=== PATIENT | female | born 1950 | race Caucasian/White ===

== ENCOUNTER → 2023-10-25 07:33 | Outpatient (REF) | payer MEDICARE, OTHER, SELFPAY ==
[2023-10-25 08:53] LABS: % Basophils 0.8 % (0-2); % Eosinophils 2.7 % (0-6); % Immature Granulocytes 0.3 % (0-0.5); % Lymphocytes 15.5 % (20.5-51.1); % Monocytes 10.2 % (1.7-9.3); % Neutrophils 70.5 % (42.2-75.2); Absolute Basophils 0.1 10^3/uL (0-0.2); Absolute Eosinophils 0.2 10^3/uL (0-0.7); Absolute Monocytes 0.6 10^3/uL (0.1-0.6); Absolute Neutrophils 4.4 10^3/uL (1.4-6.5); Hemoglobin 13.9 g/dL (12.0-16.0); Mean Corp Hgb Conc. 34.8 g/dL (33.0-37.0); Mean Corpuscular Hgb 28.7 pg (27.0-31.0); Mean Corpuscular Volume 82.5 fL (81.0-99.0); Mean Platelet Volume 8.5 fL (7.4-10.4); Nucleated Red Blood Cells % 0 %; Platelet Count 301 10^3/uL (130-400); Red Blood Cell Count 4.85 10^6/uL (4.20-5.40); Red Cell Dist. Width 13.4 % (11.5-14.5); White Blood Cell Count 6.3 10^3/uL (4.8-10.8)
[2023-10-25 09:18] LABS: ALT (SGPT) 18 U/L (0-35); AST (SGOT) 22 U/L (14-36); Albumin 3.8 g/dl (3.5-5.0); Alkaline Phosphatase 128 U/L (38-126); Blood Urea Nitrogen 17 mg/dl (7-17); Calcium 8.9 mg/dl (8.4-10.2); Carbon Dioxide 23 mmol/L (22-30); Chloride 96 mmol/L (98-107); Glucose 80 mg/dl (70-99); HDL Cholesterol 64 mg/dl; LDL Cholesterol, Calculated 156 mg/dl; Potassium 4.3 mmol/L (3.5-5.1); Sodium 128 mmol/L (135-145); Total Bilirubin 0.5 mg/dl (0.2-1.3); Total Cholesterol 238 mg/dl (50-199); Total Protein 5.5 g/dl (6.3-8.2); Triglyceride 94 mg/dl (10-149); Very Low Density Lipoprotein 18 mg/dl (0-30); eGFR > 60.00
[2023-10-25 10:37] LABS: Free T4 0.83 ng/dl (0.78-2.19); Vitamin D, 25-OH*** 34.7 ng/mL (30-80)
[2023-10-25 10:50] LABS: TSH 1.54 uIU/ml (0.47-4.68)
[2023-10-26 09:24] LABS: Glycohemoglobin (HgbA1c) 5.2 % (4.0-5.6)
[2023-10-27 01:03] LABS: Lamotrigine (Lamictal) 2.2 ug/mL (3.0-15.0)
[2023-10-28 05:52] LABS: Oxcarbazepine Metabolite 29 ug/mL (3-35)
== END ==
LOC: OLABWPC 07:33
PROVIDERS: ATTENDING PHYSICIAN Registered Nurse
DX: G35 Multiple sclerosis (principal); I73.9 Peripheral vascular disease, unspecified; I10 Essential (primary) hypertension; E78.5 Hyperlipidemia, unspecified; E55.9 Vitamin D deficiency, unspecified; R73.03 Prediabetes
CPT/HCPCS: 36415; 80053; 80061; 80175; 80183; 82306; 83036; 84439; 84443; 85025

== ENCOUNTER → 2024-01-17 13:40 | Outpatient (REF) | payer MEDICARE, OTHER, SELFPAY ==
[2024-01-17 21:56] LABS: Urine Albumin Trace (Neg - Trace); Urine Bilirubin Negative (Negative); Urine Character Very Cloudy (Clear); Urine Color Yellow; Urine Glucose Negative (Negative); Urine Ketone Negative (Negative); Urine Leukocyte 2+ (Negative); Urine Nitrite Negative (Negative); Urine Occult Blood 1+ (Negative); Urine Urobilinogen Negative (Neg - 1+)
[2024-01-17 22:48] LABS: Urine White Cell >100 /HPF (0-5)
[2024-01-17 22:49] LABS: Urine Bacteria Many (Negative)
== END ==
LOC: CLAB 13:40
PROVIDERS: ATTENDING PHYSICIAN Nurse Practitioner Family
DX: N39.0 Urinary tract infection, site not specified (principal)
CPT/HCPCS: 81003; 81015; 87077; 87086

== ENCOUNTER → 2024-03-29 19:00 | Outpatient (REF) | payer MEDICARE, OTHER, SELFPAY ==
[2024-03-30 10:43] LABS: Blood Urea Nitrogen 15 mg/dl (7-17); Calcium 9.4 mg/dl (8.4-10.2); Carbon Dioxide 23 mmol/L (22-30); Chloride 95 mmol/L (98-107); Glucose 97 mg/dl (70-99); Potassium 4.5 mmol/L (3.5-5.1); Sodium 129 mmol/L (135-145); eGFR > 60.00
[2024-03-30 10:54] LABS: Urine Albumin Negative (Neg - Trace); Urine Bilirubin Negative (Negative); Urine Character Clear (Clear); Urine Color Yellow; Urine Glucose Negative (Negative); Urine Ketone Negative (Negative); Urine Leukocyte Negative (Negative); Urine Nitrite Negative (Negative); Urine Occult Blood Negative (Negative); Urine Urobilinogen Negative (Neg - 1+)
== END ==
LOC: OLABWPC 19:00
PROVIDERS: ATTENDING PHYSICIAN Nurse Practitioner Family
DX: R30.0 Dysuria (principal); I10 Essential (primary) hypertension
CPT/HCPCS: 36415; 80048; 81003

== ENCOUNTER → 2024-10-28 21:00 | Outpatient (REF) | payer MEDICARE, OTHER, SELFPAY ==
[2024-10-29 11:26] LABS: Urine Character Slightly Cloudy (Clear)
[2024-10-29 13:14] LABS: Urine Squamous Cell 16-20 /LPF (Few)
[2024-10-29 13:16] LABS: Urine Red Blood Cell 0-2 /HPF (0-2)
== END ==
LOC: OLABWPC 21:00
PROVIDERS: ATTENDING PHYSICIAN Internal Medicine
DX: R30.0 Dysuria (principal)
CPT/HCPCS: 36415; 81003; 81015; 87086

== ENCOUNTER → 2024-10-30 11:14 | Outpatient (REF) | payer MEDICARE, OTHER, SELFPAY ==
[2024-10-30 13:15] LABS: Vitamin D, 25-OH*** 93.0 ng/mL (30-80)
== END ==
LOC: OLABWPC 11:14
PROVIDERS: ATTENDING PHYSICIAN Internal Medicine
DX: L81.4 Other melanin hyperpigmentation (principal); E55.9 Vitamin D deficiency, unspecified
CPT/HCPCS: 36415; 82306

== ENCOUNTER → 2024-12-18 09:55 | Outpatient (REF) | payer MEDICARE, OTHER, SELFPAY ==
[2024-12-18 11:26] LABS: Vitamin D, 25-OH*** 53.6 ng/mL (30-80)
== END ==
LOC: OLABWPC 09:55
PROVIDERS: ATTENDING PHYSICIAN Internal Medicine
DX: E55.9 Vitamin D deficiency, unspecified (principal)
CPT/HCPCS: 36415; 82306

== ENCOUNTER 2025-02-21 16:53 | Emergency (ER) | payer MEDICARE, SELFPAY ==
[2025-02-21 16:57] VITALS: BP 202/98
--- NOTE | 2025-02-21 17:32 | ED.GENMED ---
History of Present Illness
General
Chief Complaint: Fall
Source: patient
Exam Limitations: none
Time Seen by Provider: 02/21/25 17:27
History of Present Illness
History of Present Illness:
See MDM
Past History
Past History
ED Past Medical History: HTN, Hypercholesterolemia, Other (Multiple sclerosis presumed relapsing remitting; cognitive decline, trigeminal neuralgia, optic neuritis bilaterally, gait dysfunction) and Other (temporal lobe edema, cavernous venous
angioma)
ED Past Surgical History: Other (Right occipital Craniectomy June 2013 with resultant small subdural hematomas, cataract extraction, gamma knife procedure times 2, glycerol rhizotomy for trigeminal neuralgia)
Social History
Tobacco: Non-smoker
Alcohol: None
Drug: None
Personal:
Living: alone
Employment: Retired
Family History
Family History: Other (reviewed and noncontributory)
Phy Exam
Physical Exam
Physical Exam:
See MDM
Course
Orders/Labs/Results
Orders:
Orders
02/21/25 17:31
CT Head W/o Iv Contrast Urgent
Comment:
Reason For Exam: fall, R head injury
Acetaminophen [Tylenol] 650 mg PO NOW STA
Vital Signs
Initial and Last Documented VS:
Initial Vital Signs
Temp Pulse Resp BP Pulse Ox
98.5 F 88 16 202/98 98
02/21/25 16:57 02/21/25 16:57 02/21/25 16:57 02/21/25 16:57 02/21/25 16:57
Last Documented Vital Signs
Temp Pulse Resp BP Pulse Ox
98.5 F 88 16 191/80 97
02/21/25 16:57 02/21/25 16:57 02/21/25 16:57 02/21/25 17:42 02/21/25 17:42
MDM/Problems Addressed
Differential Diagnosis Includes:
Note:
CHIEF COMPLAINT(S)
Fall with concern for head injury.
HISTORY OF PRESENT ILLNESS
The patient is a 74-year-old female with a history of multiple sclerosis, presenting after a fall at her new apartment. She states the fall occurred when she went to the bathroom but does not report tripping over anything specific. The patient
denies feeling unsafe in her current environment but expresses frustration about the new living situation. She reports hitting her head during the fall and experiencing associated hip pain. She is concerned about her blood pressure, which she
mentions has been high. Tylenol has been suggested for pain management.
PAST MEDICAL AND SURGICAL HISTORY
Longstanding history of multiple sclerosis for approximately 50 years.
CHRONIC MEDICAL CONDITIONS SIGNIFICANTLY AFFECTING CARE
Chronic conditions affecting care include a history of multiple sclerosis.
PHYSICAL EXAM
General: Alert, no acute distress.
Skin: Warm, dry.
Head: Mild abrasion to right scalp
Neck: Appears supple, trachea midline.
Eyes, Ears, Nose, Mouth, and Throat: Moist mucous membranes
Cardiovascular: No signs of cyanosis
Respiratory: Respirations are non-labored.
Abdomen: Non-distended
Musculoskeletal: No deformities. No hip tenderness
Neurological: No focal neurological deficit observed.
Psychiatric: Cooperative, appropriate mood and affect.
PLAN
Perform a computed tomography (CT) scan to evaluate for potential head injury due to the fall.
DIFFERENTIAL DIAGNOSIS
The Differential Diagnosis includes, in no particular order and is not limited to:
- Traumatic brain injury
- Intracranial hemorrhage
- Hypertension-related complications
- Multiple sclerosis-related complications
- Simple fall due to environmental factors
- Musculoskeletal injury
- Syncope leading to fall
- Orthostatic hypotension leading to fall
- Vestibular dysfunction
SUMMARY OF ENCOUNTER
The patient presented to the emergency department due to a fall with concern for head injury. She has a long history of multiple sclerosis. Given her report of hitting her head during the fall and experiencing hip pain, a CT scan was ordered to rule
out any intracranial injury. Her high blood pressure was mentioned but not viewed as the primary cause of her visit. Tylenol was considered for pain management.
DISPOSITION
Plan for discharge home after completion of evaluation and treatment.
MEDICATION RECONCILIATION
Consideration for Tylenol for pain after her fall.
MEDICAL DECISION MAKING
- Number and Complexity of Problems Addressed: Chronic conditions affecting care include a history of multiple sclerosis.
- Data:
Category 1:
- The decision to order a CT scan to evaluate for potential head injury following the fall.
Category 3:
- Discussion of management reflects consideration of home discharge after evaluation and treatment.
- Risk:
- Consideration of Admission/Observation: Escalation of care including admission/observation was considered given the complexity and risk of the patients presenting complaint, exam findings, and/or their underlying comorbidities. However, ultimately
I feel the patient is safe for outpatient management with close follow-up. Reasoning: Work-up reassuring, does not reveal any acute life/organ threatening processes, patients symptoms well-controlled upon reevaluation, reexamination is reassuring,
vitals are stable, patient agreeable with discharge, reliable for follow-up.
SUMMARY OF ENCOUNTER
The patient, a 74-year-old female with a long history of multiple sclerosis, presented to the emergency department after a fall in her new apartment, during which she hit her head. Although she reported hip pain and was concerned about her high
blood pressure, the primary concern was potential head injury. A CT scan of the head was performed to rule out any intracranial injury, and the results were negative. The patient appeared well and stable, showing no signs of toxicity or further
injury.
DISPOSITION
The patient is being discharged home as she feels comfortable and safe returning there. Transportation has been arranged for her departure from the emergency department.
PLAN
Discharge home with close outpatient follow-up due to her history of multiple sclerosis and recent fall, to monitor for any delayed symptoms.
PATIENT EDUCATION AND COUNSELING
The patient was advised on return precautions, highlighting the importance of seeking immediate care if symptoms such as severe headache, confusion, or dizziness arise. She expressed understanding and agreed with the discharge plan.
MEDICATION RECONCILIATION
Consideration for acetaminophen for pain management following the fall.
MEDICAL DECISION MAKING
- Number and Complexity of Problems Addressed: Chronic conditions affecting care include a history of multiple sclerosis. Differential diagnosis considered traumatic brain injury, intracranial hemorrhage, hypertension-related complications, and
musculoskeletal injury.
- Data:
Category 1: CT of the head was ordered and independently reviewed, showing no evidence of acute injury.
Category 3: The discussion involved planning outpatient management and ensuring safe discharge conditions.
- Risk: Consideration of admission/observation due to the complexity and risk associated with the patients presenting complaint and comorbidities. However, she was deemed safe for outpatient management with reliable follow-up and stable condition
upon reexamination.
DIAGNOSIS
- Fall-related head injury (ICD-10: W19)
- Hypertension (ICD-10: I10)
*Pulse Oximetry
SaO2: 98
Oxygen Mode of Delivery: Room air
Patient hypoxic: no
*Critical Care Note
Total Time (30-74mins, 75-104mins- exclusive of procedures): Not Applicable
ED Attending Note
-
Portions of this chart may have been created with voice recognition software.� Occasional wrong word or��sound alike� substitutions may have occurred due to the inherent limitations of voice recognition software.
Discharge Plan
Departure
Patient Disposition: Home (Routine Discharge)
Date of Disposition: 02/21/25
Time of Disposition: 19:22
Patient with high blood pressure during this ER visit?: Yes
Discharge Problem:
Head injury
Instructions: Head Injury in Adults (DC), BLOOD PRESSURE
Prescriptions:
No Action
lisinopril 10 MG tablet
10 mg PO DAILY
Patient Comments:
02/21/21 Per home care nurse at [place]
Rx Instructions:
HOLD FOR SBP<100
docusate sodium 100 MG capsule
100 mg PO BIDPRN PRN (Reason: No BM > 24 hours) 0RF
donepezil 10 mg Tablet
10 mg PO HS
therapeutic multivitamin Tablet
1 tab PO DAILY
oxcarbazepine 300 mg tablet
450 mg PO BID@0800,1700
oxcarbazepine 300 mg tablet
600 mg PO HS
lamotrigine 25 mg tablet
25 mg PO DAILY
lamotrigine 25 mg tablet
50 mg PO HS
magnesium hydroxide [Milk of Magnesia] 400 mg/5 mL Suspension
30 ml PO DAILYPRN PRN (Reason: NO BM IN 3 DAYS)
benzonatate 100 mg Capsule
100 mg PO Q8HPRN PRN (Reason: COUGH)
fluticasone propionate 50 mcg/actuation [place],Suspension
1 spray INTRANASAL DAILY
loratadine 10 mg Tablet
10 mg PO DAILY
Artificial Tears(pvalch-povid) 0.5-0.6 % Drops
1 drp BOTH EYES QID
acetaminophen 325 MG tablet
650 mg PO Q6HPRN PRN (Reason: mild pain/[place]/temp> 100.F)
amoxicillin-pot clavulanate 875-125 mg tablet
1 tab PO BID Qty: 10 0RF
Referrals:
Drake Ortez MD [Family Provider]
Activity Restrictions/Additional Instructions:
Please return for any worsening symptoms.
You may return at any time if you have further concerns.
Please follow up with your doctor at the first available appointment, preferably this week.
Thank you for choosing [facility].
Interventions
Interventions:
*Risk Screen - Suicide Last Done: 02/21/25 18:00
*General Assessment Last Done: 02/21/25 18:00
*Neglect/Abuse Screening Last Done: 02/21/25 18:00
*ED- Fall Risk Assessment Last Done: 02/21/25 18:00
ED-Musculoskeletal Assessment Last Done: 02/21/25 18:00
ED- Neurological Assessment Last Done: 02/21/25 18:00
ED-Skin Assessment Last Done: 02/21/25 18:00
Discharge Date and Time
Print Language: BENGALI
[2025-02-21 17:42] VITALS: BP 191/80
[2025-02-21] MEDS: TYLENOL 650 MG PO (19:30)
[2025-02-21 21:10] VITALS: BP 173/100
== END 2025-02-21 22:45 | disposition home or self-care (01) ==
LOC: EMR 16:53
PROVIDERS: EMERGENCY PHYSICIAN Student in an Organized Health Care Education/Training Program; FAMILY PHYSICIAN Internal Medicine
DX: S09.90XA Unspecified injury of head, initial encounter (principal); I10 Essential (primary) hypertension; G35.D Multiple sclerosis, unspecified; E78.00 Pure hypercholesterolemia, unspecified; R41.9 Unspecified symptoms and signs involving cognitive functions and awareness; G50.0 Trigeminal neuralgia; W01.10XA Fall on same level from slipping, tripping and stumbling with subsequent striking against unspecified object, initial encounter; Y92.031 Bathroom in apartment as the place of occurrence of the external cause
CPT/HCPCS: 99284; 70450

== ENCOUNTER 2025-04-05 08:24 | Inpatient (IN) | payer MEDICARE, SELFPAY ==
[2025-04-02 17:00] VITALS: BP 175/105
[2025-04-02 17:01] VITALS: BP 166/105
[2025-04-02 17:02] VITALS: BP 175/105; BMI 23.2
--- NOTE | 2025-04-02 17:08 | ED.GENMED ---
History of Present Illness
<Mis Arenas RECORD MAKER - Last Filed: 04/03/25 22:57>
General
Chief Complaint: Weakness
Source: patient and [facility] records
Exam Limitations: altered mental status
Time Seen by Provider: 04/02/25 17:03
Nursing documentation reviewed up to this point in time: agreed with
History of Present Illness
History of Present Illness:
74 yo female with a history of memory loss, dementia, MS, HLD, HTN on top of this recent lethargy and generalized weakness which is reportedly not at her baseline. According to staff from her place of residence, she typically can stand and transfer
herself, but is currently unable to do so. She was noted to be febrile with an oral temperature of 101.2. The patient is unable to recall her name, date of , and does not know what year it is. She denies chest pain, difficulty breathing, or
dysuria. She denies abdominal pain. States 'I don't want to be here.' States she's 'at [place].'
Past History
<Mis Arenas, RECORD MAKER - Last Filed: 04/03/25 22:57>
Past History
ED Past Medical History: HTN, Hypercholesterolemia, Other (Multiple sclerosis presumed relapsing remitting; cognitive decline, trigeminal neuralgia, optic neuritis bilaterally, gait dysfunction) and Other (temporal lobe edema, cavernous venous
angioma)
ED Past Surgical History: Other (Right ooccipital Craniectomy June 2013 with resultant small subdural hematomas, cataract extraction, gamma knife procedure times 2, glycerol rhizotomy for trigeminal neuralgia)
Social History
Tobacco: Non-smoker
Alcohol: None
Drug: None
Personal:
Living: pen[facility]iary
Employment: Retired
Family History
Family History: Other (reviewed and noncontributory)
Review of Systems
<Mis Arenas, RECORD MAKER - Last Filed: 04/03/25 22:57>
Review of Systems
Allergies reviewed?: Yes
All Other Systems: ROS reviewed and negative except as documented in HPI and ROS
Constitutional: Reports fever
Phy Exam
<Mis Arenas, RECORD MAKER - Last Filed: 04/03/25 22:57>
Physical Exam
Physical Exam:
GENERAL: No acute distress. A&Ox3.
CONSTITUTIONAL: Afebrile.
EYES: clear, conjunctivae normal
ENMT: moist mucus membranes, Pharynx nl
RESPIRATORY: Regular respirations, nonlabored, lungs clear.
CARDIOVASCULAR: Regular rate and rhythm, no murmurs, no rubs. Pedal pulses 2/4. Brisk capillary refill all toes.
GI: Soft, nontender, normal BS
MUSCULOSKELETAL: Moves with ease. Well perfused. R lower leg and foot +1-2 swollen compared to left. Moves ankle well.
SKIN: Warm, dry, pink
PSYCH: Depressed mood and affect. Well kept.
NEUROLOGIC: Lethargic, easily arouses. Not oriented. No focal neurological deficits
Sepsis
<Mis Arenas, RECORD MAKER - Last Filed: 04/03/25 22:57>
Sepsis Screening
Sepsis Assessment: Sepsis Ruled Out
Sepsis Screen
Sepsis Screen: Sepsis Ruled Out
Date: 04/03/25
Time: 22:57
<Lilia Albarado, RECORD MAKER - Last Filed: 04/04/25 16:47>
Sepsis Screen
Sepsis Screen: Sepsis Ruled Out
Date: 04/04/25
Time: 16:47
Course
<Mis Arenas, RECORD MAKER - Last Filed: 04/03/25 22:57>
Orders/Labs/Results
Orders:
Orders
04/02/25 17:11
0.9% Sodium Chloride 1000 ml [Nss] 2,000 ml IV NOW STA
04/02/25 17:13
Straight cath- Treatment ONCE
CR Chest Portable - 1 View Urgent
Comment:
Reason For Exam: tachycardia, change in MS, fever
Reason Study Needs to be Portable: Patient Unstable
04/02/25 17:55
Basic Metabolic Panel Urgent
Complete Blood Count/With Diff Urgent
Blood Culture Q30M
PAULA Source: Blood/Venous
Specimen Description:
04/02/25 18:20
Lactic Acid Q4H
Comment: CANCEL 2nd LACTIC ACID IF 1st LACTIC ACID IS LESS THAN 2
Blood Culture Q30M
PAULA Source: Blood/Venous
Specimen Description:
04/02/25 18:24
CMP [Comprehensive Metabolic Panel] Urgent
COVID-19 Antigen Urgent
Source: Nasal Swab
Urinalysis Reflex To Culture Urgent
Date Specimen was Collected: 04/02/25
Time Specimen was Collected: 18:22
Urine Microscopic Reflex Cult Urgent
Influenza A+B Rapid Molecular Urgent
PAULA Source: Nasal Swab
Specimen Description:
Urine Culture Urgent
PAULA Source: U
Specimen Description:
Date Specimen was Collected: 04/02/25
Time Specimen was Collected: 18:22
04/02/25 19:53
Electrocardiogram (*1) Urgent
Reason for Study: Tachycardia
EKG- Treatment ONCE
04/02/25 20:22
D-Dimer Urgent
04/02/25 21:23
CT Chest PE Study Urgent
Comment:
Reason For Exam: SOB, elevated DDimer
04/03/25 00:18
Admit/Transfer Patient As Directed
Co-Sign Provider:
Level of Care: Observation services
Assign to:: Telemetry
Physician / Group: Enrique
Diagnosis: Fever
Reason for Telemetry: Arrhythmia
Date to Stop Telemetry: 04/06/25
Time to Stop Telemetry: 11:00
PRN Pain Medication Management As Directed
May give lesser potent ordered pain med per pt: Yes
preference::
Protocol:: Medication orders for pain may be administered in a
manner that supports deferring to patient preference
when the pt is:
- Requesting an ordered lesser potent pain medication.
Least to most potent pain medications are defined
as: acetaminophen < NSAID < tramadol < opioids
(morphine, oxycodone, hydromorphone).
- Requesting a lesser dose of the same medication IF
ORDERED.
- Requesting a less intrusive route of administration
if both routes are prescribed by the provider (PO <
IV).
04/03/25 00:20
Code Status As Directed
Resuscitation Status: Do not resuscitate
Based on pt advanced directive or healthcare POA form: Yes
DNR Bracelet Application ONCE
04/03/25 00:23
Enoxaparin Sodium [Lovenox] 70 mg SC NOW STA
Lamotrigine [Lamictal] 50 mg PO NOW STA
Oxcarbazepine [Trileptal] 600 mg PO NOW STA
04/03/25 01:00
Flush (0.9% Sodium Chloride) [Flush (Nss)] See Dose Instructions IV PER PROTOCOL
04/03/25 03:45
Acetaminophen [Tylenol] 650 mg PO Q4HPRN PRN
HydrALAZINE [Apresoline] 5 mg IV Q6HPRN PRN
04/03/25 03:45
Echo 2D MMode Doppler [Echo 2D MMode Color/Doppler] Routine
Reason for Study: Weakness, ? PE
Case Management Consult ONCE
Case Management Consult: Discharge Planning
Activity As Directed
Activity Level: Ambulate
With Assistance
Bladder Scan As Directed
Follow Bladder Retention/Intermittent Cath Algorithm?: Yes
PRN if no void in __ hours: 6
Frequency: Per Retention Algorithm
If Bladder Scan Result >: 400
then:: Straight cath
EKG with chest pain [ECG as needed] As Directed
ECG as needed for:: Chest Pain
I/O [Intake/ Output] As Directed
Frequency: Per unit guidelines
Neurological Checks As Directed
Frequency: q4h
Orthostatic Vital Signs As Directed
Orthostatic VS Frequency: BID
Straight Cath As Directed
Frequency: Per Retention Algorithm
Additional Instructions: straight cath as needed per acute urinary retention algorithm for 24 hrs
Additional Instructions: for bladder scan greater than 400 mL
Vital Signs As Directed
Frequency: Per unit guidelines
Weight As Directed
Frequency: Daily
Oxygen Therapy [O2 Therapy] [RESP] Routine
Titrate/Wean O2 to maintain O2 sat greater than (%): 94
Ot Eval And Treat Routine
PT Consult [Pt Eval And Treat] Routine
Activity Level: Ambulate
With Assistance
04/03/25 04:00
0.9% Sodium Chloride 1000 ml [Nss] 1,000 ml IV 80 mls/hr
04/03/25 Breakfast
Regular
At Your Request: Non-Participating
Does patient need a safe tray?: No
04/03/25 06:56
Complete Blood Count/No Diff IN AM
TSH Reflex To Free T4 Routine
04/03/25 08:00
Cetirizine HCl [Zyrtec] 10 mg PO DAILY
Lamotrigine [Lamictal] 25 mg PO DAILY
Lisinopril [Zestril] 10 mg PO DAILY
Memantine HCl [Namenda] 10 mg PO BID
Oxcarbazepine [Trileptal] 150 mg PO BID@0800,1700
04/03/25 13:00
Enoxaparin Sodium [Lovenox] 70 mg SC Q12H
04/03/25 22:00
Atorvastatin [Lipitor] 20 mg PO HS
Donepezil HCl [Aricept] 10 mg PO HS
Lamotrigine [Lamictal] 50 mg PO HS
Melatonin 3 mg PO HS
Oxcarbazepine [Trileptal] 600 mg PO HS
04/06/25 11:00
DC Protocol for Telemetry ONCE
Abnormal Lab Results
04/02/25 04/02/25 04/02/25
17:55 18:24 20:22
Absolute Lymphs (auto) 0.4 L 10^3/uL
(1.2-3.4)
Absolute Monos (auto) 0.9 H 10^3/uL
(0.1-0.6)
Neutrophils % 81.4 H %
(42.2-75.2)
Lymphocytes % 5.8 L %
(20.5-51.1)
Monocytes % 11.7 H %
(1.7-9.3)
D-Dimer 0.91 H ug/mlFEU
(0.00-0.50)
Sodium 133 L mmol/L 134 L mmol/L
(135-145) (135-145)
BUN 18 H mg/dl
(7-17)
Creatinine 0.5 L mg/dL 0.5 L mg/dL
(0.6-1.0) (0.6-1.0)
Alkaline Phosphatase 134 H U/L
(38-126)
Urine Ketones 2+ A
(Negative)
Urine Bacteria (Reflex) Moderate A
(Negative)
Urine Albumin (Reflex) 1+ A
(Neg - Trace)
04/02/25 17:55
04/02/25 18:24
Vital Signs
Initial and Last Documented VS:
Initial Vital Signs
Pulse Resp Pulse Ox
119 23 95
04/02/25 16:59 04/02/25 16:59 04/02/25 16:59
Last Documented Vital Signs
Temp Pulse Resp BP Pulse Ox
98.1 F 99 16 163/89 94
04/04/25 15:30 04/04/25 15:30 04/04/25 15:30 04/04/25 15:30 04/04/25 15:30
<Lilia Albarado, RECORD MAKER - Last Filed: 04/04/25 16:47>
Orders/Labs/Results
Orders:
Orders
04/02/25 17:11
0.9% Sodium Chloride 1000 ml [Nss] 2,000 ml IV NOW STA
04/02/25 17:13
Straight cath- Treatment ONCE
CR Chest Portable - 1 View Urgent
Comment:
Reason For Exam: tachycardia, change in MS, fever
Reason Study Needs to be Portable: Patient Unstable
04/02/25 17:55
Basic Metabolic Panel Urgent
Complete Blood Count/With Diff Urgent
Blood Culture Q30M
PAULA Source: Blood/Venous
Specimen Description:
04/02/25 18:20
Lactic Acid Q4H
Comment: CANCEL 2nd LACTIC ACID IF 1st LACTIC ACID IS LESS THAN 2
Blood Culture Q30M
PAULA Source: Blood/Venous
Specimen Description:
04/02/25 18:24
CMP [Comprehensive Metabolic Panel] Urgent
COVID-19 Antigen Urgent
Source: Nasal Swab
Urinalysis Reflex To Culture Urgent
Date Specimen was Collected: 04/02/25
Time Specimen was Collected: 18:22
Urine Microscopic Reflex Cult Urgent
Influenza A+B Rapid Molecular Urgent
PAULA Source: Nasal Swab
Specimen Description:
Urine Culture Urgent
PAULA Source: U
Specimen Description:
Date Specimen was Collected: 04/02/25
Time Specimen was Collected: 18:22
04/02/25 19:53
Electrocardiogram (*1) Urgent
Reason for Study: Tachycardia
EKG- Treatment ONCE
04/02/25 20:22
D-Dimer Urgent
04/02/25 21:23
CT Chest PE Study Urgent
Comment:
Reason For Exam: SOB, elevated DDimer
04/03/25 00:18
Admit/Transfer Patient As Directed
Co-Sign Provider:
Level of Care: Observation services
Assign to:: Telemetry
Physician / Group: Enrique
Diagnosis: Fever
Reason for Telemetry: Arrhythmia
Date to Stop Telemetry: 04/06/25
Time to Stop Telemetry: 11:00
PRN Pain Medication Management As Directed
May give lesser potent ordered pain med per pt: Yes
preference::
Protocol:: Medication orders for pain may be administered in a
manner that supports deferring to patient preference
when the pt is:
- Requesting an ordered lesser potent pain medication.
Least to most potent pain medications are defined
as: acetaminophen < NSAID < tramadol < opioids
(morphine, oxycodone, hydromorphone).
- Requesting a lesser dose of the same medication IF
ORDERED.
- Requesting a less intrusive route of administration
if both routes are prescribed by the provider (PO <
IV).
04/03/25 00:20
Code Status As Directed
Resuscitation Status: Do not resuscitate
Based on pt advanced directive or healthcare POA form: Yes
DNR Bracelet Application ONCE
04/03/25 00:23
Enoxaparin Sodium [Lovenox] 70 mg SC NOW STA
Lamotrigine [Lamictal] 50 mg PO NOW STA
Oxcarbazepine [Trileptal] 600 mg PO NOW STA
04/03/25 01:00
Flush (0.9% Sodium Chloride) [Flush (Nss)] See Dose Instructions IV PER PROTOCOL
04/03/25 03:45
Acetaminophen [Tylenol] 650 mg PO Q4HPRN PRN
HydrALAZINE [Apresoline] 5 mg IV Q6HPRN PRN
04/03/25 03:45
Echo 2D MMode Doppler [Echo 2D MMode Color/Doppler] Routine
Reason for Study: Weakness, ? PE
Case Management Consult ONCE
Case Management Consult: Discharge Planning
Activity As Directed
Activity Level: Ambulate
With Assistance
Bladder Scan As Directed
Follow Bladder Retention/Intermittent Cath Algorithm?: Yes
PRN if no void in __ hours: 6
Frequency: Per Retention Algorithm
If Bladder Scan Result >: 400
then:: Straight cath
EKG with chest pain [ECG as needed] As Directed
ECG as needed for:: Chest Pain
I/O [Intake/ Output] As Directed
Frequency: Per unit guidelines
Neurological Checks As Directed
Frequency: q4h
Orthostatic Vital Signs As Directed
Orthostatic VS Frequency: BID
Straight Cath As Directed
Frequency: Per Retention Algorithm
Additional Instructions: straight cath as needed per acute urinary retention algorithm for 24 hrs
Additional Instructions: for bladder scan greater than 400 mL
Vital Signs As Directed
Frequency: Per unit guidelines
Weight As Directed
Frequency: Daily
Oxygen Therapy [O2 Therapy] [RESP] Routine
Titrate/Wean O2 to maintain O2 sat greater than (%): 94
Ot Eval And Treat Routine
PT Consult [Pt Eval And Treat] Routine
Activity Level: Ambulate
With Assistance
04/03/25 04:00
0.9% Sodium Chloride 1000 ml [Nss] 1,000 ml IV 80 mls/hr
04/03/25 Breakfast
Regular
At Your Request: Non-Participating
Does patient need a safe tray?: No
04/03/25 06:56
Complete Blood Count/No Diff IN AM
TSH Reflex To Free T4 Routine
04/03/25 08:00
Cetirizine HCl [Zyrtec] 10 mg PO DAILY
Lamotrigine [Lamictal] 25 mg PO DAILY
Lisinopril [Zestril] 10 mg PO DAILY
Memantine HCl [Namenda] 10 mg PO BID
Oxcarbazepine [Trileptal] 150 mg PO BID@0800,1700
04/03/25 13:00
Enoxaparin Sodium [Lovenox] 70 mg SC Q12H
04/03/25 22:00
Atorvastatin [Lipitor] 20 mg PO HS
Donepezil HCl [Aricept] 10 mg PO HS
Lamotrigine [Lamictal] 50 mg PO HS
Melatonin 3 mg PO HS
Oxcarbazepine [Trileptal] 600 mg PO HS
04/06/25 11:00
DC Protocol for Telemetry ONCE
Abnormal Lab Results
04/02/25 04/02/25 04/02/25
17:55 18:24 20:22
Absolute Lymphs (auto) 0.4 L 10^3/uL
(1.2-3.4)
Absolute Monos (auto) 0.9 H 10^3/uL
(0.1-0.6)
Neutrophils % 81.4 H %
(42.2-75.2)
Lymphocytes % 5.8 L %
(20.5-51.1)
Monocytes % 11.7 H %
(1.7-9.3)
D-Dimer 0.91 H ug/mlFEU
(0.00-0.50)
Sodium 133 L mmol/L 134 L mmol/L
(135-145) (135-145)
BUN 18 H mg/dl
(7-17)
Creatinine 0.5 L mg/dL 0.5 L mg/dL
(0.6-1.0) (0.6-1.0)
Alkaline Phosphatase 134 H U/L
(38-126)
Urine Ketones 2+ A
(Negative)
Urine Bacteria (Reflex) Moderate A
(Negative)
Urine Albumin (Reflex) 1+ A
(Neg - Trace)
04/02/25 17:55
04/02/25 18:24
Vital Signs
Initial and Last Documented VS:
Initial Vital Signs
Pulse Resp Pulse Ox
119 23 95
04/02/25 16:59 04/02/25 16:59 04/02/25 16:59
Last Documented Vital Signs
Temp Pulse Resp BP Pulse Ox
98.1 F 99 16 163/89 94
04/04/25 15:30 04/04/25 15:30 04/04/25 15:30 04/04/25 15:30 04/04/25 15:30
<Mis Arenas RECORD MAKER - Last Filed: 04/03/25 22:57>
MDM/Problems Addressed
Differential Diagnosis Includes:
UTI, dehydration
MDM/Problems Addressed:
74 yo female with a history of memory loss, cognitive decline, dementia, MS, HLD, HTN on top of this recent lethargy and generalized weakness which is reportedly not at her baseline. According to staff from her place of residence, she typically can
stand and transfer herself, but is currently unable to do so. She was noted to be febrile with an oral temperature of 101.2. The patient is unable to recall her name, date of , and does not know what year it is. She denies chest pain,
difficulty breathing, or dysuria. She denies abdominal pain. States 'I don't want to be here.' States she's 'at [place].'
Temp 99.8, NAD
6:20 p.m.
Pt more alert, knows she's ad [facility], states year is 2014. continues to deny pain, thinks she's here for 'my blood pressure.' follows commands, strength 5/5 all extremities.
CBC normal
CMP with no clinically significant abnormality.
U/A pending
Covid neg
Flu neg
Lactic acid WNL
7:30 PM:
Patient is refusing ultrasound of right lower extremity, stating that area is 'always swollen.' She states she just wants to go back to [place]
She continues to be more alert, knows she's in [facility] but stating '2014' and '' for president.
Could not reach any medical personnel at [facility]. Spoke with the security operations manager who states pt is in personal care and has aides there 12/11. He gave me the number to the nursing supervisor special services, left message for her to call me back so I could get idea of
pt baseline.
U/A neg
After 1 L NSS IV, HR 108, due to persistent tachycardia, discussed case with Dr. Rebollar. Will check d dimer and if neg, OK to send back to [place]
EKG: NSR
8:15 p.m.
BP 182/92 HR 103 Pulse ox 93% RA
Case discussed with Lilia Albarado who will assume care from this point.
If d dimer is normal, pt OK for DC back to [place], never received a call back for [facility] staff.
<Msi Arenas, RECORD MAKER - Last Filed: 04/03/25 22:57>
*Pulse Oximetry
SaO2: 94
Oxygen Mode of Delivery: Room air
Patient hypoxic: no
*EKG
Interpreted by ED Provider?: Yes
EKG Intrepretation Date: 04/02/25
Interpretation: abnormal
Heart Rate: 110
Rate: tachycardiac
Rhythm: sinus
[place]: normal axis
Interval: normal interval
QRS Pattern: normal QRS
Ischemia: no ischemia
*Critical Care Note
Total Time (30-74mins, 75-104mins- exclusive of procedures): Not Applicable
<Lilia Albarado, RECORD MAKER - Last Filed: 04/04/25 16:47>
Update Note
Update Note:
Patient signed out to me pending D-dimer results. D-dimer elevated at 0.91. Discussed finding with patient and daughter. Patient sent for CT of chest to rule out pulmonary embolism. CT results neg for PE. Mild emphysema, 2mm RUL nodule noted.
Vital signs are unchanged, heart rate maintaining at 110. She remains afebrile. Pulse ox is 94% on room air. No evidence of tachypnea . daughter states that patient appears much weaker than normal and does not feel that she can return back to
her apartment safely. She notes that patient has had diarrhea 2 days ago, leading up to increased weakness. Patient is currently unable to transfer or ambulate without maximum assistance. Will plan on admission to hospitalist for increased
weakness.
ED Attending Note
<Mis Arenas RECORD MAKER - Last Filed: 04/03/25 22:57>
-
Portions of this chart may have been created with voice recognition software.� Occasional wrong word or��sound alike� substitutions may have occurred due to the inherent limitations of voice recognition software.
Discharge Plan
Departure
Patient Disposition: Admit
Date of Disposition: 04/02/25
Time of Disposition: 23:49
Presentation/result/management discussed w/ accepting MD/DO: Hospitalist
Patient with high blood pressure during this ER visit?: No
Condition: Fair
Covid-19: Not Applicable
Discharge Problem:
Weakness
Interventions
Interventions:
*Risk Screen - Suicide Last Done: 04/02/25 18:31
*General Assessment Last Done: 04/02/25 18:31
*Neglect/Abuse Screening Last Done: 04/02/25 18:31
*ED COVID-19 Vaccine History Last Done: 04/02/25 18:31
*ED Influenza Vaccine History Last Done: 04/02/25 18:31
[facility] Risk Assessment Tool Last Done: 04/02/25 18:29
*Nursing Disposition Last Done: 04/03/25 03:05
ED- Cardiac Assessment Last Done: 04/02/25 18:31
ED- Neurological Assessment Last Done: 04/02/25 18:31
ED- Pulmonary Assessment Last Done: 04/02/25 18:31
Discharge Date and Time
Discharge Date/Time: 04/03/25 03:05
[2025-04-02 18:00] VITALS: BP 173/97
[2025-04-02 18:04] LABS: Hematocrit 44.5 % (37.0-47.0); Hemoglobin 15.0 g/dL (12.0-16.0); Mean Corp Hgb Conc. 33.7 g/dL (33.0-37.0); Mean Corpuscular Volume 87.6 fL (81.0-99.0); Nucleated Red Blood Cells % 0 %; Platelet Count 216 10^3/uL (130-400); Red Cell Dist. Width 13.9 % (11.5-14.5)
[2025-04-02 18:18] LABS: Blood Urea Nitrogen 18 mg/dl (7-17); Calcium 9.4 mg/dl (8.4-10.2); Carbon Dioxide 28 mmol/L (22-30); Chloride 98 mmol/L (98-107); Estimated Creatinine Clearance 79 ml/min; Glucose 93 mg/dl (70-99); Sodium 133 mmol/L (135-145); eGFR > 60.00
[2025-04-02] MEDS: NSS 2000 ML IV (18:19)
[2025-04-02 18:46] LABS: ALT (SGPT) 35 U/L (0-35); AST (SGOT) 29 U/L (14-36); Albumin 4.9 g/dl (3.5-5.0); Alkaline Phosphatase 134 U/L (38-126); Blood Urea Nitrogen 16 mg/dl (7-17); Calcium 9.6 mg/dl (8.4-10.2); Carbon Dioxide 27 mmol/L (22-30); Chloride 98 mmol/L (98-107); Estimated Creatinine Clearance 79 ml/min; Glucose 96 mg/dl (70-99); Potassium 4.1 mmol/L (3.5-5.1); Sodium 134 mmol/L (135-145); Total Protein 7.1 g/dl (6.3-8.2); eGFR > 60.00
[2025-04-02 18:51] LABS: COVID-19 Antigen Negative (Negative)
[2025-04-02 19:07] LABS: Urine Character Clear (Clear)
[2025-04-02 19:37] LABS: Urine Squamous Cell None seen /LPF (Few); Urine White Cell 0-2 /HPF (0-5)
[2025-04-02 19:38] LABS: Urine Red Blood Cell None Seen /HPF (0-2)
[2025-04-02 20:43] LABS: D-Dimer 0.91 ug/mlFEU (0.00-0.50)
[2025-04-03] VITALS (7 sets, daily range): BP systolic 149–185; BP diastolic 76–105; PULSE 96–111; BMI 21.9
--- NOTE | 2025-04-03 00:25 | HPS.HSE ---
Family Physician
-
Family Physician: INTERVIEWE UNKNOWN - PT NOT
Chief Complaint
-
Fever, Weakness
History of Present Illness
Patient is a 74y F with PMH significant for multiple sclerosis, dementia, hypertension and trigeminal neuralgia who presents to ED from local [place] for evaluation of fever and weakness. Patient was sent from [facility] after they noted
fever to 101 and patient was having difficulty with standing / transfers - which is not consistent with her baseline. In the ED, patient is intermittently confused. She states that she is here for evaluation of high blood pressure. She denies any
current complaints at all. She is noted to be tachycardic and hypertensive. Evaluation in the ED has otherwise been largely unremarkable.
Tmax here = 99.8. Labs are unremarkable with exception of elevated D-Dimer (0.91). CXR is unremarkable. CTA Chest with no evidence of PE - but notably limited in visualization of bilateral lower lobes due to motion.
Patient states that she did have a recent GI illness / diarrhea. She notes that she has had no diarrhea for the past 3 days however.
No other specific / focal complaints.
Medical History
Past Medical History
Past Medical History: Reports Other
Additional Past Medical History:
Multiple Sclerosis
Dementia
Trigeminal Neuralgia
Hypertension
Cwxxs-Xoszcaljj-Khxra
Chronic Tachycardia
COPD
Chronic Hyponatremia
Cerebral Cavernoma s/p Resection
Past Surgical History: Reports Other
Additional Past Surgical History:
Cerebral Cavernoma Resection
Social History
Tobacco: Former Smoker (Quit smoking age 34.)
Alcohol: None
Drug: None
Living: Correction
Family History
Family History: Not pertinent
Allergies / Home Medications
Allergies reflects when Allergies were last updated in [employer].
Home Medications with original date entered in [employer]
Allergy/Medication List:
Allergies
Allergy/AdvReac Type Severity Reaction Status Date / Time
No Known Allergies Allergy Verified 02/21/25 17:05
Home Medications
lisinopril 10 mg tablet 10 mg PO DAILY Blood pressure 02/21/21
acetaminophen 325 mg tablet 650 mg PO Q6HPRN PRN mild pain/[place]/temp> 100.F 07/10/22
benzonatate 100 mg capsule 100 mg PO Q8HPRN PRN COUGH 07/10/22
donepezil 10 mg tablet 10 mg PO HS DEMENTIA 07/10/22
lamotrigine 25 mg tablet 25 mg PO DAILY Neurological Condition 07/10/22
lamotrigine 25 mg tablet 50 mg PO HS Neurological Condition 07/10/22
magnesium hydroxide 400 mg/5 mL oral suspension (Milk of Magnesia) 30 ml PO DAILYPRN PRN NO BM IN 2 DAYS 07/10/22
oxcarbazepine 300 mg tablet 450 mg PO BID@0800,1700 Neurological Condition 07/10/22
oxcarbazepine 300 mg tablet 600 mg PO HS Neurological Condition 07/10/22
polyvinyl alcohol-povidone 0.5 %-0.6 % eye drops (Artificial Tears (polyvinyl alcohol/povidone)) 1 drp BOTH EYES QID DRY EYE 07/10/22
therapeutic multivitamin 1 tab PO DAILY Supplement 07/10/22
atorvastatin 20 mg tablet (Lipitor) 20 mg PO HS 04/02/25
cetirizine 10 mg tablet (Zyrtec) 10 mg PO DAILY 04/02/25
docusate sodium 100 mg capsule 100 mg PO BIDPRN PRN constipation 04/02/25
guaifenesin 600 mg tablet, extended release 12 hr (Mucinex) 600 mg PO BIDPRN PRN congestion 04/02/25
loperamide 2 mg tablet 2 mg PO [id number] PRN diarrhea 04/02/25
melatonin 3 mg tablet 3 mg PO HS 04/02/25
memantine 10 mg tablet 10 mg PO BID 04/02/25
miconazole nitrate 2 % topical spray powder (Lotrimin AF Powder) 1 spray topical MEADE@2000 toe nails 04/02/25
oxybutynin chloride 5 mg tablet 5 mg PO HS 04/02/25
pseudoephedrine-ibuprofen 30 mg-200 mg capsule (Advil Cold and Sinus) 1 cap PO TIDPRN PRN congestion 04/02/25
Review of Systems
-
History Source: Patient
A 12 point ROS was completed and negative except as noted: Yes
Constitutional: Reports Fever and Fatigue; Denies Chills
EENT: Denies Sore Throat
Respiratory: Denies Cough or Trouble Breathing
Cardiac: Denies Chest Pain or Palpitations
Abdomen/GI: Reports Diarrhea (now resolved x 3 days); Denies Abdominal Pain, Nausea or Vomiting
: Denies Dysuria, Frequency or Flank Pain
Musculoskeletal: Reports Edema (chronic RLE swelling - unchanged.); Denies Joint Pain
Neurological: Reports Weakness; Denies Dizzy or Headache
Physical Exam
Vital Signs
Vital Signs
Temp Pulse Resp BP Pulse Ox
99.8 F 119 23 173/97 94
04/02/25 18:29 04/02/25 18:30 04/02/25 18:30 04/02/25 18:00 04/02/25 18:31
Physical Exam
General: Other (74y F in no acute distress.)
HEENT: Moist mucous membranes and PERRLA
Respiratory: Clear; No Wheezes, Rales or Rhonchi
Cardiac: S1/S2 and Tachycardia; No Murmur
GI: Soft, Non Tender, Non Distended and Normal Bowel Sounds
Musculoskeletal: No Clubbing, No Cyanosis and Other (Trace - 1+ RLE edema. )
Neuro: Awake, Alert and Other (Bilateral LE weakness.)
Laboratory Results
-
04/02/25 17:55
04/02/25 18:24
Laboratory Results
Lactic Acid Cancelled 04/02/25 21:15
Total Bilirubin 0.3 mg/dl (0.2-1.3) 04/02/25 18:24
AST 29 U/L (14-36) 04/02/25 18:24
ALT 35 U/L (0-35) 04/02/25 18:24
Alkaline Phosphatase 134 U/L (38-126) H 04/02/25 18:24
Impression/Plan
-
A/P: Patient is a 74y F with PMH significant for MS, HTN and dementia who presents to ED for evaluation for fever and increased weakness.
Fever
Acute on Chronic Weakness
- Observe overnight for further evaluation.
- Evaluation thus far largely unremarkable (see below).
- COVID / Flu negative. Follow-up culture data.
- Follow temp curve and monitor for any new / focal symptoms.
- Observe off of abx for now.
- PT / OT evaluations.
- Note that baseline is reportedly paraplegic / confined to motorized chair. Able to stand / transfer which she was not able to do today.
Equivocal CTA
- Patient with tachycardia (which is chronic / intermittent) and elevated D-Dimer (even once age-adjusted).
- CTA unable to exclude PE in subsegmental branches of bilateral lower lobes due to motion.
- Weight-based Lovenox for now as PE cannot be definitively ruled-out with this information.
- Echo in AM for further evaluation.
- Follow vitals, SpO2, etc.
Multiple Sclerosis
- Functional paraplegia per prior notes here (2022) and NH report.
- Able to stand / transfer as noted above at baseline.
- PT / OT as noted.
Trigeminal Neuralgia
- No pain at present. s/p prior CyberKnife surgeries x 2.
- Continue current med regimen without changes.
WPW / Chronic Tachycardia
- Monitor on telemetry overnight.
- Follow for any new symptoms, chest pain, etc.
- Echo as noted above.
Senile Dementia
- Variable mental status in the ED - at times [id number].
- During my exam patient seemed able to provide meaningful recent history, answer questions appropriately, etc.
- Continue Aricept / Namenda.
DVT Prophylaxis: Lovenox
Code Status: DNR per Advanced Directive
[2025-04-03] MEDS: LAMICTAL 50 MG PO ×2 (00:51→21:10)
[2025-04-03] MEDS: TRILEPTAL 600 MG PO ×2 (00:51→21:11)
[2025-04-03] MEDS: LOVENOX 70 MG SC ×2 (00:52→12:23)
[2025-04-03] MEDS: NSS 1000 IV ×2 (04:29→20:59)
[2025-04-03] MEDS: FLUSH (NSS) 1 FLUSH IV (04:32)
[2025-04-03] MEDS: NAMENDA 10 MG PO ×2 (07:47→21:00)
[2025-04-03] MEDS: ZYRTEC 10 MG PO (07:48)
[2025-04-03] MEDS: DESENEX/MITRAZOL/ZEASORB 1 APPLIC TOPICAL ×2 (07:48→21:02)
[2025-04-03] MEDS: LAMICTAL 25 MG PO (07:48)
[2025-04-03] MEDS: ZESTRIL 10 MG PO (07:49)
[2025-04-03] MEDS: TRILEPTAL 150 MG PO ×2 (07:49→18:31)
[2025-04-03] MEDS: TRILEPTAL 300 MG PO ×2 (07:49→18:31)
[2025-04-03 08:14] LABS: Hematocrit 43.2 % (37.0-47.0); Hemoglobin 15.2 g/dL (12.0-16.0); Mean Corp Hgb Conc. 35.2 g/dL (33.0-37.0); Mean Corpuscular Volume 86.7 fL (81.0-99.0); Platelet Count 201 10^3/uL (130-400); Red Cell Dist. Width 13.9 % (11.5-14.5)
[2025-04-03 09:55] LABS: Blood Urea Nitrogen 14 mg/dl (7-17); Calcium 8.8 mg/dl (8.4-10.2); Carbon Dioxide 22 mmol/L (22-30); Chloride 105 mmol/L (98-107); Estimated Creatinine Clearance 82 ml/min; Glucose 96 mg/dl (70-99); Potassium 3.7 mmol/L (3.5-5.1); Sodium 136 mmol/L (135-145); eGFR > 60.00
--- NOTE | 2025-04-03 14:04 | W.PN.HOSP.TC ---
Today's Communication/Plan
-
Assessment / Plan
Assessment / Plan
General: No Apparent Distress, Comfortable and Conversant
HEENT: NormoCephalic, Moist mucous membranes, Atraumatic
Respiratory: Clear and Non Labored Respirations
Cardiac: S1/S2 and Regular Rhythm; No Rub or Gallop
GI: Soft, Non Tender, Non Distended and Normal Bowel Sounds
Musculoskeletal: Mild right lower extremity edema, no deformity
Skin: Warm and dry
: NO Lopez
Neuro: Awake, Alert, Nonfocal/grossly intact
Psych: Calm and cooperative
Ms. Martin is a 74-year-old female with a medical history of multiple sclerosis (functional paraplegia), hypertension, trigeminal neuralgia, WPW, COPD, cerebral cavernoma (s/p resection), and dementia who presented from [place] due to
weakness and fevers. She reportedly was having difficulty with transfers which she is usually able to do at baseline. Her D-dimer was elevated even when corrected for age. CT angiography did not elucidate any PE but was unable to adequately
assess bilateral lower lobes due to motion. She was started on anticoagulation with weight-based Lovenox empirically. She reportedly had a recent GI illness with diarrhea however has not had any unusual bowel movements since admission. She has
been afebrile since admission, no leukocytosis, and respiratory panel negative for influenza and COVID.
Acute weakness:
- Unclear etiology, she has been saturating in the mid 90s on room air and has been mildly tachycardic with heart rate around 110
- Reportedly had recent GI illness with diarrhea, has not had abnormal stools since admission
- Reportedly febrile prior to arrival, afebrile since arrival with no leukocytosis
- Respiratory panel negative for influenza or COVID
- D-dimer was elevated even when age-adjusted
- CT angiography did not visualize PE but could not exclude PE in the subsegmental branches of the bilateral lower lobes due to motion
- Anticoagulated empirically with weight-based Lovenox for now
- Will check lower extremity Dopplers and echo
Lkzyq-Liummhnxv-Dmibw, chronic tachycardia:
- Does not appear to be on any rate controlling medic patients as an outpatient
- Continue telemetry monitoring
Hypertension:
- Continue home lisinopril 10 mg daily
Dementia:
- Supportive care
- Continue donepezil and memantine
Trigeminal neuralgia:
- Continue lamotrigine
DVT prophylaxis: Weight-based Lovenox
CODE STATUS: DNR
Anticipated Discharge: 24 - 48 hours
Subjective/Interval History
-
Date of Service: April 03, 2025
Patient was seen and examined at bedside this morning. Breathing comfortably and saturating appropriately on room air.
Objective Data
-
Labs:
Laboratory Results
04/03/25 04/03/25
06:56 09:19
WBC 5.5
Hgb 15.2
Hct 43.2
Plt Count 201
Sodium Cancelled 136
Potassium Cancelled 3.7
Chloride Cancelled 105
Carbon Dioxide Cancelled 22
BUN Cancelled 14
Creatinine Cancelled 0.5 L
Glucose Cancelled 96
Calcium Cancelled 8.8
Vital Signs:
Vital Signs
Temp Pulse Resp BP Pulse Ox
98.8 F 105 16 168/95 93
04/03/25 08:00 04/03/25 08:00 04/03/25 08:00 04/03/25 08:00 04/03/25 08:00
I&O
04/02/25 04/03/25 04/04/25
06:59 06:59 06:59
Intake Total 220 / 220
Output Total 850 / 850
Balance -630 / -630
Review of Systems
-
Unable to obtain full review of systems at this time due to: Dementia
Physical Exam
-
General: No Apparent Distress
[2025-04-03] MEDS: APRESOLINE 5 MG IV (15:19)
[2025-04-03] MEDS: MELATONIN 3 MG PO (21:01)
[2025-04-03] MEDS: LIPITOR 20 MG PO (21:01)
[2025-04-03] MEDS: ARICEPT 10 MG PO (21:10)
[2025-04-04] MEDS: LOVENOX 70 MG SC ×2 (02:00→13:57)
[2025-04-04 03:32] VITALS: BP 163/90
[2025-04-04 05:49] VITALS: BMI 22.3
[2025-04-04 07:59] VITALS: BP 167/80
[2025-04-04 08:35] LABS: Hematocrit 41.2 % (37.0-47.0); Hemoglobin 13.8 g/dL (12.0-16.0); Mean Corp Hgb Conc. 33.5 g/dL (33.0-37.0); Mean Corpuscular Volume 88.6 fL (81.0-99.0); Nucleated Red Blood Cells % 0 %; Platelet Count 195 10^3/uL (130-400); Red Cell Dist. Width 14.3 % (11.5-14.5)
[2025-04-04 08:42] LABS: Blood Urea Nitrogen 15 mg/dl (7-17); Calcium 8.2 mg/dl (8.4-10.2); Carbon Dioxide 22 mmol/L (22-30); Chloride 107 mmol/L (98-107); Estimated Creatinine Clearance 82 ml/min; Glucose 78 mg/dl (70-99); Potassium 3.5 mmol/L (3.5-5.1); Sodium 136 mmol/L (135-145); eGFR > 60.00
[2025-04-04] MEDS: LAMICTAL 25 MG PO (08:53)
[2025-04-04] MEDS: ZYRTEC 10 MG PO (08:53)
[2025-04-04] MEDS: DESENEX/MITRAZOL/ZEASORB 1 APPLIC TOPICAL ×2 (08:53→22:13)
[2025-04-04] MEDS: ZESTRIL 10 MG PO (08:54)
[2025-04-04] MEDS: NAMENDA 10 MG PO ×2 (08:54→20:31)
[2025-04-04] MEDS: TRILEPTAL 150 MG PO ×2 (08:54→16:07)
[2025-04-04] MEDS: TRILEPTAL 300 MG PO ×2 (08:54→16:07)
[2025-04-04] MEDS: NSS 1000 IV (08:57)
[2025-04-04 11:28] VITALS: BP 139/61
--- NOTE | 2025-04-04 12:49 | CM ---
Addendum entered by Betty Simental 04/04/25 15:51:
Received call from Debra at [facility], unable to accept patient back to due assist X2. Report patient typically transfers independently or is a min assist.
Reviewed with Hospitalist- will see if PT can work with patient tomorrow.
Patient currently OBS status, does not have inpatient stay for SNF coverage.
Addendum entered by Betty Simental 04/04/25 14:51:
CM spoke with Nurse Debra at [facility], faxed clinicals for review [phone]- aware patient medically stable.
Per Debra- need confirmation from supervisor finishing department that patient can return- need to ensure patient is at baseline. Debra will call CM back once reviews clinicals/speaks with supervisor finishing department.
Addendum entered by Betty Simental 04/04/25 12:57:
ORTIZ form verbally reviewed with daughter, placed in chart.
Original Note:
CM reviewed chart, call to patients daughter, Kenya, to complete initial assessment.
Patient is a 74 year old F with PMH significant for multiple sclerosis, dementia, hypertension and trigeminal neuralgia who presents to ED from local [place] for evaluation of fever and weakness.
Per daughter, patient resides at [facility], been there about 12 years.
Daughter reports patient has someone give medications/bathe patient weekly.
Patient typically transfers independently to , has power chair.
Patient has had therapy at [facility], daughter agreeable for patient to receive therapy at [facility], patient will need script for PT/OT to be sent upon d/c
Will need to confirm with [facility] ability to accept patient back.
Patient has been to [facility] in past.
PCP in house at [facility], daughter unsure name. Pharmacy [facility] in [place].
Consult received for Eliquis pricing
CM will continue to follow for all d/c planning.
Plan; return to [facility], will need script for PT/OT, will need to confirm with facility ability to accept pt back
--- NOTE | 2025-04-04 14:42 | W.PN.HOSP.TC ---
Today's Communication/Plan
-
Assessment / Plan
Assessment / Plan
General: No Apparent Distress, Comfortable and Conversant
HEENT: NormoCephalic, Moist mucous membranes, Atraumatic
Respiratory: Clear and Non Labored Respirations
Cardiac: S1/S2 and Regular Rhythm; No Rub or Gallop
GI: Soft, Non Tender, Non Distended and Normal Bowel Sounds
Musculoskeletal: Mild right lower extremity edema, no deformity
Skin: Warm and dry
: NO Lopez
Neuro: Awake, Alert, Nonfocal/grossly intact
Psych: Calm and cooperative
Ms. Martin is a 74-year-old female with a medical history of multiple sclerosis (functional paraplegia), hypertension, trigeminal neuralgia, WPW, COPD, cerebral cavernoma (s/p resection), and dementia who presented from her halfway due to
weakness and fevers. She reportedly was having difficulty with transfers which she is usually able to do at baseline. Her D-dimer was elevated even when corrected for age. CT angiography did not elucidate any PE but was unable to adequately
assess bilateral lower lobes due to motion. She was started on anticoagulation with weight-based Lovenox empirically. She reportedly had a recent GI illness with diarrhea however has not had any unusual bowel movements since admission. She has
been afebrile since admission, no leukocytosis, and respiratory panel negative for influenza and COVID.
Acute weakness:
- Unclear etiology, she has been saturating in the mid 90s on room air and has been mildly tachycardic with heart rate around 110
- Reportedly had recent GI illness with diarrhea, has not had abnormal stools since admission
- Reportedly febrile prior to arrival, afebrile since arrival with no leukocytosis
- Respiratory panel negative for influenza or COVID
- D-dimer was elevated even when age-adjusted
- CT angiography did not visualize PE but could not exclude PE in the subsegmental branches of the bilateral lower lobes due to motion
- Started on anticoagulation empirically with weight-based Lovenox
- Repeat CTA showed no PE, anticoagulation discontinued
- Medically stable for discharge
Fvnvv-Dgfdmxxut-Qjpjo, chronic tachycardia:
- Does not appear to be on any rate controlling medic patients as an outpatient
- Continue telemetry monitoring
Hypertension:
- Continue home lisinopril 10 mg daily
Dementia:
- Supportive care
- Continue donepezil and memantine
Trigeminal neuralgia:
- Continue lamotrigine
DVT prophylaxis: Weight-based Lovenox
CODE STATUS: DNR
Anticipated Discharge: Within 24 hours
Subjective/Interval History
-
Date of Service: April 04, 2025
Patient was seen and examined at bedside this morning. Comfortable, no acute events overnight
Objective Data
-
Labs:
Laboratory Results
04/04/25
07:16
WBC 5.9
Hgb 13.8
Hct 41.2
Plt Count 195
Sodium 136
Potassium 3.5
Chloride 107
Carbon Dioxide 22
BUN 15
Creatinine 0.5 L
Glucose 78
Calcium 8.2 L
Vital Signs:
Vital Signs
Temp Pulse Resp BP Pulse Ox
98 F 103 16 139/61 96
04/04/25 11:28 04/04/25 11:28 04/04/25 11:28 04/04/25 11:28 04/04/25 11:28
I&O
04/03/25 04/04/25 04/05/25
06:59 06:59 06:59
Intake Total 220 / 220 120 / 120
Output Total 850 / 850
Balance -630 / -630 120 / 120
Review of Systems
-
History Source: Patient
All other systems: Reviewed and negative
Physical Exam
-
General: No Apparent Distress
[2025-04-04 15:30] VITALS: BP 163/89
[2025-04-04 19:51] VITALS: BP 177/99
[2025-04-04] MEDS: TYLENOL 650 MG PO (20:30)
[2025-04-04] MEDS: MELATONIN 3 MG PO (22:07)
[2025-04-04] MEDS: LIPITOR 20 MG PO (22:07)
[2025-04-04] MEDS: TRILEPTAL 600 MG PO (22:07)
[2025-04-04] MEDS: ARICEPT 10 MG PO (22:08)
[2025-04-04] MEDS: LAMICTAL 50 MG PO (22:08)
[2025-04-04 22:13] VITALS: BP 146/74
[2025-04-05] VITALS (12 sets, daily range): BP systolic 120–180; BP diastolic 62–107; PULSE 83–123; O2SAT 93; BMI 21.8
[2025-04-05] MEDS: DESENEX/MITRAZOL/ZEASORB 1 APPLIC TOPICAL ×2 (08:18→20:01)
[2025-04-05] MEDS: NAMENDA 10 MG PO ×2 (08:19→20:02)
[2025-04-05] MEDS: LAMICTAL 25 MG PO (08:19)
[2025-04-05] MEDS: ZYRTEC 10 MG PO (08:20)
[2025-04-05] MEDS: TRILEPTAL 300 MG PO ×2 (08:20→17:12)
[2025-04-05] MEDS: TRILEPTAL 150 MG PO ×2 (08:20→17:12)
[2025-04-05] MEDS: APRESOLINE 5 MG IV (08:20)
[2025-04-05] MEDS: ZESTRIL 10 MG PO (08:20)
--- NOTE | 2025-04-05 10:00 | PTCARENOTE ---
Pt set up for breakfast and began chewing a piece of toast and proceeded to begin coughing as if choking but was able to clear out toast herself. Dr Hurtado on the floor and made aware. Speech consulted and IV antibiotics to be started.
[2025-04-05] MEDS: UNASYN IV ×2 (11:49→17:13)
--- NOTE | 2025-04-05 13:25 | PTOTSP ---
Speech Therapy Evaluation:
Pt with acute on chronic risk factors of dysphagia including hx of MS, Dementia, oropharyngeal dysphagia (s/p VSE 2021 and 2022), trigeminal neuralgia, COPD, CVA, and current admission for weakness. At bedside, noted moderate oral impairments. No
overt s/sx of aspiration across trials, WBC WNL, pt on room air, and CT chest without pna concerns.
Recommend:
1. Diet downgrade to IDDSI Level 6 (soft and bite sized solids), continue thin liquids
2. Meds as tolerated
3. Close spv with meals
4. Strict aspiration precautions
5. MOCK UP ASSEMBLER to follow to monitor tolerance of diet and provide education in aspiration precautions
--- NOTE | 2025-04-05 15:08 | W.PN.HOSP.TC ---
Today's Communication/Plan
-
Assessment / Plan
Assessment / Plan
General: No Apparent Distress, Comfortable and Conversant
HEENT: NormoCephalic, Moist mucous membranes, Atraumatic
Respiratory: Clear and Non Labored Respirations
Cardiac: Regular rhythm, heart rate around 110
GI: Soft, Non Tender, Non Distended and Normal Bowel Sounds
Musculoskeletal: Mild right lower extremity edema, no deformity
Skin: Warm and dry
: NO Lopez
Neuro: Awake, Alert, Nonfocal/grossly intact
Psych: Calm and cooperative
Ms. Martin is a 74-year-old female with a medical history of multiple sclerosis (functional paraplegia), hypertension, trigeminal neuralgia, WPW, COPD, cerebral cavernoma (s/p resection), and dementia who presented from her [place] [facility] due to
weakness and fevers. She reportedly was having difficulty with transfers which she is usually able to do at baseline. Her D-dimer was elevated even when corrected for age. CT angiography did not elucidate any PE but was unable to adequately
assess bilateral lower lobes due to motion. She was started on anticoagulation with weight-based Lovenox empirically. She reportedly had a recent GI illness with diarrhea however has not had any unusual bowel movements since admission. She has
been afebrile since admission, no leukocytosis, and respiratory panel negative for influenza and COVID.
Acute weakness:
- Unclear etiology, she has been saturating in the mid 90s on room air and has been mildly tachycardic with heart rate around 110
- Reportedly had recent GI illness with diarrhea, has not had abnormal stools since admission
- Reportedly febrile prior to arrival, will afebrile since arrival with no leukocytosis until last evening (04/04) when she developed a low-grade fever of 100.9 �F
- Evaluated by POLITICAL GEOGRAPHER who recommended soft and bite-size diet and continuing thin liquids, close supervision with meals
- Started antibiotics with Unasyn for possible aspiration pneumonia
- Urine culture negative, previous urine culture from 01/17/2024 growing Enterococcus faecalis sensitive to ampicillin
- Respiratory panel negative for influenza or COVID
- D-dimer was elevated even when age-adjusted, CT angiography negative for PE, will check right lower extremity ultrasound for DVT
- PT/OT recommending SNF when medically stable for discharge
Xvvyd-Wnkjhwgzu-Mjipj, chronic tachycardia:
- Does not appear to be on any rate controlling medic patients as an outpatient
- Continue telemetry monitoring
Hypertension:
- Continue home lisinopril 10 mg daily
Dementia:
- Supportive care
- Continue donepezil and memantine
- Evaluated by POLITICAL GEOGRAPHER who recommended soft and bite-size diet and continuing thin liquids, close supervision with meals
Trigeminal neuralgia:
- Continue lamotrigine
DVT prophylaxis: Lovenox
CODE STATUS: DNR
Anticipated Discharge: 24 - 48 hours
Subjective/Interval History
-
Date of Service: April 05, 2025
Patient was seen and examined at bedside this morning. She had a very mild fever overnight with a temperature of 100.9 �F. Unclear source but she may be aspirating. Asked for POLITICAL GEOGRAPHER evaluation and started on antibiotics.
Objective Data
-
Vital Signs:
Vital Signs
Temp Pulse Resp BP Pulse Ox
99.5 F 124 18 142/85 93
04/05/25 11:39 04/05/25 11:39 04/05/25 11:39 04/05/25 11:39 04/05/25 11:39
I&O
04/04/25 04/05/25 04/06/25
06:59 06:59 06:59
Intake Total 120 / 120 1420 / 1420
Balance 120 / 120 1420 / 1420
Review of Systems
-
Unable to obtain full review of systems at this time due to: Dementia
History Source: Patient
All other systems: Reviewed and negative
Physical Exam
-
General: No Apparent Distress
--- NOTE | 2025-04-05 16:01 | CM ---
Addendum entered by Thalia Dorman 04/05/25 16:12:
CM spoke with patient's daughter re SNF placement for patient. She would prefer placement at [facility]. Referral to [facility] placed in [facility].
Original Note:
Chart reviewed. PT/OT are now recommending SNF. Referral made to [facility] through [facility].
[2025-04-05] MEDS: LOVENOX 40 MG SC (17:12)
[2025-04-05] MEDS: LIPITOR 20 MG PO (22:44)
[2025-04-05] MEDS: MELATONIN 3 MG PO (22:44)
[2025-04-05] MEDS: TRILEPTAL 600 MG PO (22:44)
[2025-04-05] MEDS: LAMICTAL 50 MG PO (22:44)
[2025-04-05] MEDS: ARICEPT 10 MG PO (22:47)
[2025-04-05] MEDS: TYLENOL 650 MG PO (23:31)
[2025-04-06] VITALS (7 sets, daily range): BP systolic 105–174; BP diastolic 56–94
[2025-04-06] MEDS: UNASYN IV ×2 (00:23→05:25)
[2025-04-06] MEDS: NAMENDA 10 MG PO ×2 (08:01→20:19)
[2025-04-06] MEDS: TRILEPTAL 150 MG PO ×2 (08:01→16:59)
[2025-04-06] MEDS: LAMICTAL 25 MG PO (08:01)
[2025-04-06] MEDS: DESENEX/MITRAZOL/ZEASORB 1 APPLIC TOPICAL ×2 (08:01→20:19)
[2025-04-06] MEDS: TRILEPTAL 300 MG PO ×2 (08:02→16:59)
[2025-04-06] MEDS: ZYRTEC 10 MG PO (08:02)
[2025-04-06] MEDS: ZESTRIL 10 MG PO (08:02)
--- NOTE | 2025-04-06 10:00 | CON.ID ---
Consultation
-
Date/Time Consultation Requested: 04/06/25 8:44
Date/Time Consultation Performed: 04/06/25 10:00
Requesting Provider: Dr Foss
Performing Provider: Dr Ford
Reason for Consultation: fevers, unclear source, on abx
Chief Complaint / Past History
Chief Complaint
fever weakness
History of Present Illness
Ms Martin is a 74 year old female with history of MS (ambulatory dysfunction), trigeminal neuralgia, dementia who presented here 04/03 for NH for fever to 101.2, weakness, intermittent confusion. Having difficulty with transfers - change from her
baseline. She does report rectn diarrhea that has resolved for at least the last 3 days. She reports no complaints. She denies: chest pain, difficulty breathing, dysuria, and abdominal pain.
Since arrival here her tmax is 101.1 - fevers ongoing, bp stable, she was initially tachycardic to the 120s now normalized in 80s-90s, RR teens, wbc 7.2, hgb 15, plt 216,L shift present on arrival, d-dimer .9 elevated, na 133, cr 0.5,t bili 0.3, ast
29, alt 35, alk phos 134, UA no pyuria moderate bacteria, covid ag negative, 04/02 CXR: no acute CP process, 04/02 CT PE: no PE, small subpleural airspace consolidations of the lower lobes, atelectasis vs mild pneumonia, 2 mm pulmonary nodule, 04/04
CT PE study: mild bibasilar consolidation likely atelectasis, no PE, urine culture finalized negative, influenza negative ,blood cultures x2 NG at 72 hours, 04/05 RN noted coughing/choaking with attempting to eat a piece of toast, seen by speech and
changed to a dysphagia diet, patient was started on unasyn yesterday at 1.5 gm IV q6 hours.]
Today RN at the bedside reports moist, nonproductive cough and coughing with eating. Patient specifically denies: headache, sore throat, sinus tenderness, nausea, vomiting, diarrhea, dysuria, rashes, new joint pains, tender PIVs. Reports she is
not around any animals and no sick contacts.
Past History
Additional Past Medical History:
HTN, Hypercholesterolemia, Other (Multiple sclerosis presumed relapsing remitting; cognitive decline, trigeminal neuralgia, optic neuritis bilaterally, gait dysfunction) and Other (temporal lobe edema, cavernous venous angioma),
[id number], COPDD
Additional Past Surgical History:
Right occipital Craniectomy June 2013 with resultant small subdural hematomas, cataract extraction, gamma knife procedure times 2, glycerol rhizotomy for trigeminal neuralgia
Allergy History:
No Known Allergies Allergy (Verified 02/21/25 17:05)
Medications Reviewed: Yes
Social History
Tobacco: Former Smoker
Alcohol: None
Drug: None
Family History
Family History: Not Pertinent
Review of Systems
Review of Systems
Constitutional: Reports Fever and Fatigue; Denies Chills
EENT: Denies Sore Throat
Respiratory: Denies Cough or Trouble Breathing
Cardiac: Denies Chest Pain or Palpitations
Abdomen/GI: Reports Diarrhea (now resolved x 3 days); Denies Abdominal Pain, Nausea or Vomiting
: Denies Dysuria, Frequency or Flank Pain
Musculoskeletal: Reports Edema (chronic RLE swelling - unchanged.); Denies Joint Pain
Neurological: Reports Weakness; Denies Dizzy or Headache
Vital Signs
Temp Pulse Resp BP Pulse Ox
98.6 F 91 18 136/61 91
04/06/25 07:35 04/06/25 07:35 04/06/25 07:35 04/06/25 07:35 04/06/25 07:35
Physical Exam
Physical Exam
Constitutional: No Acute Distress and Chronically Ill
Cardiovascular: Regular Rate and S1/S2; Negative Murmur or Rub
Pulmonary: Clear and Symmetric; Negative Wheezes, Rales or Rhonchi
Gastrointestinal: Soft, Non Tender, Non Distended and Normal Bowel Sounds
Skin: Warm and Dry; Negative Rash or Jaundice
Lab / Diagnostic Study Results
Abs Immat Gran (auto) 0.0 10^3/uL (0-0.05) 04/04/25 07:16
Absolute Neuts (auto) 4.1 10^3/uL (1.4-6.5) 04/04/25 07:16
Absolute Lymphs (auto) 0.9 10^3/uL (1.2-3.4) L 04/04/25 07:16
Absolute Monos (auto) 0.7 10^3/uL (0.1-0.6) H 04/04/25 07:16
Absolute Basos (auto) 0.0 10^3/uL (0-0.2) 04/04/25 07:16
Immature Gran % 0.5 % (0-0.5) 04/04/25 07:16
Neutrophils % 69.5 % (42.2-75.2) 04/04/25 07:16
Lymphocytes % 15.7 % (20.5-51.1) L 04/04/25 07:16
Monocytes % 11.5 % (1.7-9.3) H 04/04/25 07:16
Eosinophils % 2.5 % (0-6) 04/04/25 07:16
Basophils % 0.3 % (0-2) 04/04/25 07:16
Lactic Acid Cancelled 04/02/25 21:15
Ur Squamous Epith Cells None seen /LPF (Few) 04/02/25 18:24
Microbiology Results
Micro:
04/02/25 18:20 Blood Culture - Preliminary
Blood/Venous No Growth in 72 hours- Final report to follow
04/02/25 17:55 Blood Culture - Preliminary
Blood/Venous No Growth in 72 hours- Final report to follow
04/02/25 18:24 Urine Culture - Final
Urine NO GROWTH
04/02/25 18:24 Influenza Types A & B (CHONG) - Final
Nasal Swab Negative for Influenza A & B, NAAT
Negative results must be combined with clinical observations
and patient history.
Nucleic Acid Amplification test (NAAT)performed on the
[employer] platform.
Assessment / Plan
Aspiration Pneumonia vs Pneumonitis
Dysphagia
Fever
- blood cultures x2 no growth to date
- no sputum sent for culture thus far
- covid and influenza negative
- follow up RLE venous US
- start cefdinir 300 mg po bid 5 day course 04/05-04/09; stop unasyn
- follow clinically
[2025-04-06 10:08] LABS: Hematocrit 40.4 % (37.0-47.0); Hemoglobin 13.4 g/dL (12.0-16.0); Mean Corp Hgb Conc. 33.2 g/dL (33.0-37.0); Mean Corpuscular Volume 88.6 fL (81.0-99.0); Nucleated Red Blood Cells % 0 %; Platelet Count 178 10^3/uL (130-400); Red Cell Dist. Width 14.1 % (11.5-14.5)
--- NOTE | 2025-04-06 11:00 | PN.CDI ---
CDI
- -
CDI:
Physician Documentation Request
Admit Date: 04/05/25 08:24
Dear Doctor Genesis,
Please review the following and provide your response in the progress notes.
Clinical Indicators:
- 04/02 ER Physician 'patient is unable to recall her name, date of , and does not know what year it is'
- 'Pt more alert, knows she's ad DH, states year is 2014'
- 04/03 H&P, pmh hypertension, 'She is noted to be tachycardic and hypertensive'
- 5mg IV hydralazine x 2
Selected Entries
04/02/25
17:00 04/03/25
15:19 04/05/25
07:40
Blood pressure 175/105 185/102 180/103
Clarify which, if any of the following, is a more accurate diagnosis reflecting the type and acuity of the documented hypertension:
Essential primary hypertension only
Hypertensive Urgency - B/P is severely elevated (systolic > or = to 180 or diastolic > or = to 110) but there is no associated organ damage. Symptoms may include: headache, shortness of breath, nosebleeds, severe anxiety. Treatment usually consists
of addition to or adjusting of oral medications and does not generally necessitate hospitalization.
Hypertensive Emergency - B/P is severely elevated (systolic > or = to 180 or diastolic > or = to 110) but can occur at lower levels especially in patients who did not previously have high B/P. There is usually associated organ damage. Symptoms may
include: memory loss, LOC, CVA, MN, angina, renal failure, pulmonary edema. Generally requires more aggressive treatment and a hospitalization.
Hypertensive Crisis - an acute elevation in B/P that can lead to organ damage. Broad term that is further differentiated to include urgency or emergency based on presence of organ damage.
Other (please specify)
Use of terms such as suspected, likely, concern for, or probable (associated with a specific diagnosis that is being evaluated, monitored, or treated as if it exists) are acceptable and can be coded in the inpatient setting, when documented at the
time of discharge.
Thank you,
Christina Caballero RN
CDI Specialist
Please use your independent medical judgment in providing your response.
[2025-04-06] MEDS: OMNICEF 300 MG PO ×2 (11:09→20:19)
[2025-04-06 11:52] LABS: Blood Urea Nitrogen 24 mg/dl (7-17); Calcium 8.4 mg/dl (8.4-10.2); Carbon Dioxide 24 mmol/L (22-30); Chloride 106 mmol/L (98-107); Estimated Creatinine Clearance 82 ml/min; Glucose 96 mg/dl (70-99); Potassium 2.8 mmol/L (3.5-5.1); Sodium 138 mmol/L (135-145); eGFR > 60.00
[2025-04-06] MEDS: KCL 270 MEQ IV (13:58)
[2025-04-06] MEDS: KLOR-CON 20 MEQ PO (13:58)
--- NOTE | 2025-04-06 14:32 | CM ---
CAROLIN is working on SNF placement for patient. her daughter has requested [facility] SNF. Referral was made through [facility]. Spoke with Kristin in Admissions at [facility]. She is reviewing patient's clinical information.
Plan: SNF, family has requested [facility]
--- NOTE | 2025-04-06 14:48 | W.PN.HOSP.TC ---
Addendum entered and electronically signed by Jaquan Hurtado DO 04/06/25 18:40:
Clarification:
- Patient previously had hypertensive Urgency which has since resolved, has essential primary hypertension at baseline which is being treated
Original Note:
Today's Communication/Plan
-
Assessment / Plan
Assessment / Plan
General: No Apparent Distress, Comfortable and Conversant
HEENT: NormoCephalic, Moist mucous membranes, Atraumatic
Respiratory: Clear and Non Labored Respirations
Cardiac: Regular rhythm, heart rate around 90
GI: Soft, Non Tender, Non Distended and Normal Bowel Sounds
Musculoskeletal: Mild right lower extremity edema, no deformity
Skin: Warm and dry
: NO Lopez
Neuro: Awake, Alert, Nonfocal/grossly intact
Psych: Calm and cooperative
Ms. Martin is a 74-year-old female with a medical history of multiple sclerosis (functional paraplegia), hypertension, trigeminal neuralgia, WPW, COPD, cerebral cavernoma (s/p resection), and dementia who presented from her [facility]dc due to
weakness and fevers. She reportedly was having difficulty with transfers which she is usually able to do at baseline. Her D-dimer was elevated even when corrected for age. CT angiography did not elucidate any PE but was unable to adequately
assess bilateral lower lobes due to motion. She was started on anticoagulation with weight-based Lovenox empirically. She reportedly had a recent GI illness with diarrhea however has not had any unusual bowel movements since admission. She has
been afebrile since admission, no leukocytosis, and respiratory panel negative for influenza and COVID.
Acute weakness:
- Unclear etiology, she has been saturating in the mid 90s on room air and has been mildly tachycardic with heart rate around 110, tachycardia is chronic
- Reportedly had recent GI illness with diarrhea, has not had abnormal stools since admission
- Reportedly febrile prior to arrival, was afebrile since arrival with no leukocytosis until evening of 04/04 when she developed a low-grade fever of 100.9 �F, was febrile again evening of 04/05 with temp 101.1 �F
- Evaluated by ESTERS AND EMULSIFIERS SUPERVISOR who recommended soft and bite-size diet and continuing thin liquids, close supervision with meals, video swallow today 04/06 with no overt signs of aspiration
- Started antibiotics with Unasyn for possible aspiration pneumonia, evaluated by ID who recommended transition to antibiotic coverage with cefdinir through 04/09
- Urine culture negative, previous urine culture from 01/17/2024 growing Enterococcus faecalis sensitive to ampicillin
- Respiratory panel negative for influenza or COVID
- D-dimer was elevated even when age-adjusted, CT angiography negative for PE, right lower extremity ultrasound negative for DVT
- PT/OT recommending SNF when medically stable for discharge
Rrssk-Wvgblvzbg-Lmrkz, chronic tachycardia:
- Does not appear to be on any rate controlling medic patients as an outpatient
- Continue telemetry monitoring
Hypertension:
- Continue home lisinopril 10 mg daily
Dementia:
- Supportive care
- Continue donepezil and memantine
- Evaluated by ESTERS AND EMULSIFIERS SUPERVISOR who recommended soft and bite-size diet and continuing thin liquids, close supervision with meals, no overt aspiration on video swallow
Trigeminal neuralgia:
- Continue lamotrigine
DVT prophylaxis: Lovenox
CODE STATUS: DNR
Anticipated Discharge: 24 - 48 hours
Subjective/Interval History
-
Date of Service: April 06, 2025
Patient was seen and examined at bedside this morning. Ports feeling okay. Was febrile again overnight. Cultures remain negative. To be evaluated by ID.
Objective Data
-
Labs:
Laboratory Results
04/06/25 04/06/25
09:26 11:23
WBC 9.9
Hgb 13.4
Hct 40.4
Plt Count 178
Sodium Cancelled 138
Potassium Cancelled 2.8 L
Chloride Cancelled 106
Carbon Dioxide Cancelled 24
BUN Cancelled 24 H
Creatinine Cancelled 0.5 L
Glucose Cancelled 96
Calcium Cancelled 8.4
Vital Signs:
Vital Signs
Temp Pulse Resp BP Pulse Ox
97.9 F 92 18 149/70 93
04/06/25 11:46 04/06/25 11:46 04/06/25 11:46 04/06/25 11:46 04/06/25 11:46
I&O
04/05/25 04/06/25 04/07/25
06:59 06:59 06:59
Intake Total 1420 / 1420 920 / 920
Balance 1420 / 1420 920 / 920
Review of Systems
-
Unable to obtain full review of systems at this time due to: Dementia
History Source: Patient
All other systems: Reviewed and negative
Physical Exam
-
General: No Apparent Distress
--- NOTE | 2025-04-06 14:56 | PTOTSP ---
Videofluoroscopic swallow study
Patient presents with at least mild oral/pharyngeal dysphagia without aspiration. Esophageal sweep concerning for esophageal dysphagia. Consider continuation of modified solid diet due to cognitive changes combined with mild oral dysphagia
observed this date.
Recommend:
1. IDDSI 6 soft/bite sized, Thin liquids
2. Medications: as best tolerated
3. Strategies: Full supervision and assistance, single sips/bites, slow rate, intersperse liquids throughout meal to assist with esophageal clearance, remain upright for 30 minutes after PO intake as a reflux precaution
4. Oral care 3x daily
5. Brief follow up for education in compensations and to determine if/when solid advancement may be appropriate
[2025-04-06] MEDS: LOVENOX 40 MG SC (16:59)
[2025-04-06] MEDS: MELATONIN 3 MG PO (21:37)
[2025-04-06] MEDS: TRILEPTAL 600 MG PO (21:37)
[2025-04-06] MEDS: ARICEPT 10 MG PO (21:38)
[2025-04-06] MEDS: LIPITOR 20 MG PO (21:38)
[2025-04-06] MEDS: LAMICTAL 50 MG PO (21:38)
[2025-04-07] VITALS (7 sets, daily range): BP systolic 134–154; BP diastolic 72–84; PULSE 94; BMI 21.5
[2025-04-07 07:24] LABS: Hematocrit 37.6 % (37.0-47.0); Hemoglobin 12.8 g/dL (12.0-16.0); Mean Corp Hgb Conc. 34.0 g/dL (33.0-37.0); Mean Corpuscular Volume 88.3 fL (81.0-99.0); Nucleated Red Blood Cells % 0 %; Platelet Count 167 10^3/uL (130-400); Red Cell Dist. Width 14.2 % (11.5-14.5)
[2025-04-07 07:53] LABS: Blood Urea Nitrogen 23 mg/dl (7-17); Calcium 8.3 mg/dl (8.4-10.2); Carbon Dioxide 24 mmol/L (22-30); Chloride 109 mmol/L (98-107); Estimated Creatinine Clearance 82 ml/min; Glucose 84 mg/dl (70-99); Potassium 3.5 mmol/L (3.5-5.1); Sodium 139 mmol/L (135-145); eGFR > 60.00
[2025-04-07] MEDS: TRILEPTAL 300 MG PO ×2 (10:20→18:24)
[2025-04-07] MEDS: ZYRTEC 10 MG PO (10:20)
[2025-04-07] MEDS: NAMENDA 10 MG PO ×2 (10:20→21:09)
[2025-04-07] MEDS: TRILEPTAL 150 MG PO ×2 (10:21→18:24)
[2025-04-07] MEDS: LAMICTAL 25 MG PO (10:21)
[2025-04-07] MEDS: OMNICEF 300 MG PO ×2 (10:21→21:09)
[2025-04-07] MEDS: ZESTRIL 10 MG PO (10:22)
[2025-04-07] MEDS: DESENEX/MITRAZOL/ZEASORB 1 APPLIC TOPICAL ×2 (10:23→21:09)
--- NOTE | 2025-04-07 13:08 | W.PN.ID1 ---
Date of Service
Date of Service: April 07, 2025
Today's Communication
- c/w cefdinir 300 mg po bid 5 day course 04/05-04/09
- follow up with PCP
Assessment / Plan
Aspiration Pneumonia vs Pneumonitis
Dysphagia
Fever
- blood cultures x2 no growth to date
- no sputum sent for culture thus far
- covid and influenza negative
- follow up RLE venous US
- c/w cefdinir 300 mg po bid 5 day course 04/05-04/09
- follow up with PCP
Chief Complaint
-: Fever and Pneumonia
Subjective / Review of Systems
afebrile over 24 hours
bp stable
reports cough ongoing, no other complaints
Vital Signs / Physical Exam
Vital Signs
Vital Signs
Temp Pulse Resp BP Pulse Ox
97.9 F 88 18 138/75 90
04/07/25 11:34 04/07/25 11:34 04/07/25 11:34 04/07/25 11:34 04/07/25 11:34
Physical Exam
Constitutional: No Acute Distress
Cardiovascular: Regular Rate and S1/S2; Negative Murmur or Rub
Pulmonary: Clear and Symmetric; Negative Wheezes or Rales
Gastrointestinal: Soft, Non Tender, Non Distended and Normal Bowel Sounds
Skin: Warm and Dry; Negative Rash or Jaundice
Objective Data
Lab Data
Lab Results
04/07/25 06:56
04/07/25 06:56
Estimated Creat Clear 82 ml/min 04/07/25 06:56
Lactic Acid Cancelled 04/02/25 21:15
Total Bilirubin 0.3 mg/dl (0.2-1.3) 04/02/25 18:24
AST 29 U/L (14-36) 04/02/25 18:24
ALT 35 U/L (0-35) 04/02/25 18:24
Alkaline Phosphatase 134 U/L (38-126) H 04/02/25 18:24
Most recent labs reviewed.
Micro Results:
04/02/25 18:20 Blood Culture - Preliminary
Blood/Venous No Growth in 4 days- Final report to follow
04/02/25 17:55 Blood Culture - Preliminary
Blood/Venous No Growth in 4 days- Final report to follow
04/02/25 18:24 Urine Culture - Final
Urine NO GROWTH
04/02/25 18:24 Influenza Types A & B (CHONG) - Final
Nasal Swab Negative for Influenza A & B, NAAT
Negative results must be combined with clinical observations
and patient history.
Nucleic Acid Amplification test (NAAT)performed on the
[employer] platform.
--- NOTE | 2025-04-07 14:09 | W.PN.HOSP.TC ---
Today's Communication/Plan
-
Assessment / Plan
Assessment / Plan
General: No Apparent Distress, Comfortable and Conversant
HEENT: NormoCephalic, Moist mucous membranes, Atraumatic
Respiratory: Clear and Non Labored Respirations
Cardiac: Regular rhythm, heart rate around 90
GI: Soft, Non Tender, Non Distended and Normal Bowel Sounds
Musculoskeletal: Mild right lower extremity edema, no deformity
Skin: Warm and dry
: NO Lopez
Neuro: Awake, Alert, Nonfocal/grossly intact
Psych: Calm and cooperative
Ms. Martin is a 74-year-old female with a medical history of multiple sclerosis (functional paraplegia), hypertension, trigeminal neuralgia, WPW, COPD, cerebral cavernoma (s/p resection), and dementia who presented from her long-term due to
weakness and fevers. She reportedly was having difficulty with transfers which she is usually able to do at baseline. Her D-dimer was elevated even when corrected for age. CT angiography did not elucidate any PE but was unable to adequately
assess bilateral lower lobes due to motion. She was started on anticoagulation with weight-based Lovenox empirically. She reportedly had a recent GI illness with diarrhea however has not had any unusual bowel movements since admission. She has
been afebrile since admission, no leukocytosis, and respiratory panel negative for influenza and COVID.
Acute weakness:
- Unclear etiology, she has been saturating in the mid 90s on room air and has been mildly tachycardic with heart rate around 110, tachycardia is chronic
- Reportedly had recent GI illness with diarrhea, has not had abnormal stools since admission
- Reportedly febrile prior to arrival, was afebrile since arrival with no leukocytosis until evening of 04/04 when she developed a low-grade fever of 100.9 �F, was febrile again evening of 04/05 with temp 101.1 �F
- Evaluated by VAC PRESS OPERATOR who recommended soft and bite-size diet and continuing thin liquids, close supervision with meals, video swallow 04/06 with no overt signs of aspiration
- Started antibiotics with Unasyn for possible aspiration pneumonia, evaluated by ID who recommended transition to antibiotic coverage with cefdinir through 04/09
- Has been afebrile past 24 hours
- Respiratory panel negative for influenza or COVID
- D-dimer was elevated even when age-adjusted, CT angiography negative for PE, right lower extremity ultrasound negative for DVT
- Medically stable for discharge to SNF when arranged
Uuiqo-Rxnkolozr-Sxoag, chronic tachycardia:
- Does not appear to be on any rate controlling medic patients as an outpatient
- Continue telemetry monitoring
Hypertension:
- Continue home lisinopril 10 mg daily
Dementia:
- Supportive care
- Continue donepezil and memantine
- Evaluated by VAC PRESS OPERATOR who recommended soft and bite-size diet and continuing thin liquids, close supervision with meals, no overt aspiration on video swallow
Trigeminal neuralgia:
- Continue lamotrigine
DVT prophylaxis: Lovenox
CODE STATUS: DNR
Anticipated Discharge: 24 - 48 hours
Subjective/Interval History
-
Date of Service: April 07, 2025
Patient was seen and examined at bedside this morning. Feeling well. No acute events overnight. Afebrile for the past 24 hours.
Objective Data
-
Labs:
Laboratory Results
04/07/25
06:56
WBC 7.5
Hgb 12.8
Hct 37.6
Plt Count 167
Sodium 139
Potassium 3.5
Chloride 109 H
Carbon Dioxide 24
BUN 23 H
Creatinine 0.4 L
Glucose 84
Calcium 8.3 L
Vital Signs:
Vital Signs
Temp Pulse Resp BP Pulse Ox
97.9 F 88 18 138/75 90
04/07/25 11:34 04/07/25 11:34 04/07/25 11:34 04/07/25 11:34 04/07/25 11:34
I&O
04/06/25 04/07/25 04/08/25
06:59 06:59 06:59
Intake Total 920 / 920 870 / 870
Balance 920 / 920 870 / 870
Review of Systems
-
Unable to obtain full review of systems at this time due to: Dementia
History Source: Patient
All other systems: Reviewed and negative
Physical Exam
-
General: No Apparent Distress
--- NOTE | 2025-04-07 16:08 | CM ---
CAROLIN is working on SNF placement for patient. Referral has been made to [facility] at her daughter's request. Spoke with Kristin in Admissions at [facility] - there is no bed availability at [facility] today, will check back in the am. Spoke with daughter
about alternatives to [facility] If [facility] is unable to accept, her daughter would like her to go to SNF at [facility] Referral made to [facility]. CAROLIN spoke with Maile in Admissions - earliest bed available for patient at this [facility]ane is 04/09. Will also follow
up with CARMELITA in the am as well. IIM given.
Plan: SNF when bed is available.
[2025-04-07] MEDS: LOVENOX 40 MG SC (18:24)
[2025-04-07] MEDS: ARICEPT 10 MG PO (21:09)
[2025-04-07] MEDS: TRILEPTAL 600 MG PO (21:09)
[2025-04-07] MEDS: LIPITOR 20 MG PO (21:09)
[2025-04-07] MEDS: LAMICTAL 50 MG PO (21:09)
[2025-04-07] MEDS: MELATONIN 3 MG PO (21:10)
[2025-04-08 03:26] VITALS: BP 140/76
[2025-04-08 04:44] VITALS: BMI 21.7
[2025-04-08] MEDS: LAMICTAL 25 MG PO (08:11)
[2025-04-08] MEDS: ZESTRIL 10 MG PO (08:11)
[2025-04-08] MEDS: OMNICEF 300 MG PO ×2 (08:11→19:58)
[2025-04-08] MEDS: ZYRTEC 10 MG PO (08:11)
[2025-04-08] MEDS: NAMENDA 10 MG PO ×2 (08:11→19:58)
[2025-04-08] MEDS: TRILEPTAL 150 MG PO ×2 (08:11→17:12)
[2025-04-08] MEDS: DESENEX/MITRAZOL/ZEASORB 1 APPLIC TOPICAL ×2 (08:13→19:58)
[2025-04-08] MEDS: TRILEPTAL 300 MG PO ×2 (08:19→17:13)
[2025-04-08 08:29] VITALS: BP 162/92
[2025-04-08 08:36] LABS: Hematocrit 38.2 % (37.0-47.0); Hemoglobin 13.0 g/dL (12.0-16.0); Mean Corp Hgb Conc. 34.0 g/dL (33.0-37.0); Mean Corpuscular Volume 88.0 fL (81.0-99.0); Nucleated Red Blood Cells % 0 %; Platelet Count 178 10^3/uL (130-400); Red Cell Dist. Width 13.7 % (11.5-14.5)
[2025-04-08 09:12] LABS: Blood Urea Nitrogen 19 mg/dl (7-17); Calcium 8.2 mg/dl (8.4-10.2); Carbon Dioxide 27 mmol/L (22-30); Chloride 105 mmol/L (98-107); Estimated Creatinine Clearance 82 ml/min; Glucose 76 mg/dl (70-99); Potassium 3.4 mmol/L (3.5-5.1); Sodium 137 mmol/L (135-145); eGFR > 60.00
--- NOTE | 2025-04-08 10:37 | CM ---
TC to Belen, data security administrator of Personal [facility], patient has been declined for return stating patient is not baseline.
Belen updated that daughter will probably reach out to her.
TC to Liaison at [facility] skilled rehab, bed available at [facility] care tomorrow. Will continue bed search for today.
Plan: skilled rehab once bed secured.
[2025-04-08 11:34] VITALS: BP 139/78
--- NOTE | 2025-04-08 14:25 | W.PN.HOSP.TC ---
Today's Communication/Plan
-
Assessment / Plan
Assessment / Plan
General: No Apparent Distress, Comfortable and Conversant
HEENT: NormoCephalic, Moist mucous membranes, Atraumatic
Respiratory: Clear and Non Labored Respirations
Cardiac: Regular rhythm, heart rate around 90
GI: Soft, Non Tender, Non Distended and Normal Bowel Sounds
Musculoskeletal: Mild right lower extremity edema, no deformity
Skin: Warm and dry
: NO Lopez
Neuro: Awake, Alert, Nonfocal/grossly intact
Psych: Calm and cooperative
Ms. Matrin is a 74-year-old female with a medical history of multiple sclerosis (functional paraplegia), hypertension, trigeminal neuralgia, WPW, COPD, cerebral cavernoma (s/p resection), and dementia who presented from her residential due to
weakness and fevers. She reportedly was having difficulty with transfers which she is usually able to do at baseline. Her D-dimer was elevated even when corrected for age. CT angiography did not elucidate any PE but was unable to adequately
assess bilateral lower lobes due to motion. She was started on anticoagulation with weight-based Lovenox empirically. She reportedly had a recent GI illness with diarrhea however has not had any unusual bowel movements since admission. She has
been afebrile since admission, no leukocytosis, and respiratory panel negative for influenza and COVID.
Acute weakness:
- Unclear etiology, she has been saturating in the mid 90s on room air and has been mildly tachycardic with heart rate around 110, tachycardia is chronic
- Reportedly had recent GI illness with diarrhea, has not had abnormal stools since admission
- Reportedly febrile prior to arrival, was afebrile since arrival with no leukocytosis until evening of 04/04 when she developed a low-grade fever of 100.9 �F, was febrile again evening of 04/05 with temp 101.1 �F
- Evaluated by DAIRY HUSBANDMAN who recommended soft and bite-size diet and continuing thin liquids, close supervision with meals, video swallow 04/06 with no overt signs of aspiration
- Started antibiotics with Unasyn for possible aspiration pneumonia, evaluated by ID who recommended transition to antibiotic coverage with cefdinir through 04/09
- Has been afebrile past 48 hours
- Respiratory panel negative for influenza or COVID
- D-dimer was elevated even when age-adjusted, CT angiography negative for PE, right lower extremity ultrasound negative for DVT
- Medically stable for discharge to SNF when arranged
Hypokalemia:
- Mild with serum potassium 3.4
- Replete, monitor
Bkcob-Xigfczmhn-Mmqnc, chronic tachycardia:
- Does not appear to be on any rate controlling medic patients as an outpatient
- Continue telemetry monitoring
Hypertension:
- Continue home lisinopril 10 mg daily
Dementia:
- Supportive care
- Continue donepezil and memantine
- Evaluated by DAIRY HUSBANDMAN who recommended soft and bite-size diet and continuing thin liquids, close supervision with meals, no overt aspiration on video swallow
Trigeminal neuralgia:
- Continue lamotrigine
DVT prophylaxis: Lovenox
CODE STATUS: DNR
Anticipated Discharge: 24 - 48 hours
Subjective/Interval History
-
Date of Service: April 08, 2025
Patient was seen and examined at bedside this morning. No acute events overnight. Remains afebrile. Awaiting SNF placement.
Objective Data
-
Labs:
Laboratory Results
04/08/25
06:38
WBC 5.4
Hgb 13.0
Hct 38.2
Plt Count 178
Sodium 137
Potassium 3.4 L
Chloride 105
Carbon Dioxide 27
BUN 19 H
Creatinine 0.4 L
Glucose 76
Calcium 8.2 L
Vital Signs:
Vital Signs
Temp Pulse Resp BP Pulse Ox
98.4 F 87 16 139/78 92
04/08/25 11:34 04/08/25 11:34 04/08/25 11:34 04/08/25 11:34 04/08/25 11:34
I&O
04/07/25 04/08/25 04/09/25
06:59 06:59 06:59
Intake Total 870 / 870 500 / 500
Balance 870 / 870 500 / 500
Review of Systems
-
Unable to obtain full review of systems at this time due to: Dementia
History Source: Patient
All other systems: Reviewed and negative
Physical Exam
-
General: No Apparent Distress
[2025-04-08] MEDS: KLOR-CON 40 MEQ PO (14:41)
[2025-04-08 15:41] VITALS: BP 152/79
--- NOTE | 2025-04-08 16:12 | CM ---
[facility] will have an available bed for patient on 04/08/2025. Confirmed transfer with Maile in Admissions at [facility] for 11am on 04/09/25. Patient and her daughter are aware of scheduled transfer.
[facility]
phone for report# [phone]
fax#[phone]
Plan: Transfer to [facility] on 04/09 via ambulance
--- NOTE | 2025-04-08 16:40 | W.PN.ID1 ---
Date of Service
Date of Service: April 08, 2025
Today's Communication
- c/w cefdinir 300 mg po bid 5 day course 04/05-04/09
- follow up with PCP
Assessment / Plan
Aspiration Pneumonia vs Pneumonitis
Dysphagia
Fever
- blood cultures x2 no growth to date
- not producing sputum
- RLE venous US - no DVT
- c/w cefdinir 300 mg po bid 5 day course 04/05-04/09
- follow up with PCP
Chief Complaint
-: Fever and Pneumonia
Subjective / Review of Systems
afebrile
bp stable
reports no cough and no difficulty breathing
asking about discharge
Vital Signs / Physical Exam
Vital Signs
Vital Signs
Temp Pulse Resp BP Pulse Ox
97.8 F 93 18 152/79 92
04/08/25 15:41 04/08/25 15:41 04/08/25 15:41 04/08/25 15:41 04/08/25 15:41
Physical Exam
Constitutional: No Acute Distress
Cardiovascular: Regular Rate and S1/S2; Negative Murmur or Rub
Pulmonary: Clear and Symmetric; Negative Wheezes or Rales
Gastrointestinal: Soft, Non Tender, Non Distended and Normal Bowel Sounds
Skin: Warm and Dry; Negative Rash or Jaundice
Objective Data
Lab Data
Lab Results
04/08/25 06:38
04/08/25 06:38
Estimated Creat Clear 82 ml/min 04/08/25 06:38
Lactic Acid Cancelled 04/02/25 21:15
Total Bilirubin 0.3 mg/dl (0.2-1.3) 04/02/25 18:24
AST 29 U/L (14-36) 04/02/25 18:24
ALT 35 U/L (0-35) 04/02/25 18:24
Alkaline Phosphatase 134 U/L (38-126) H 04/02/25 18:24
Most recent labs reviewed.
Micro Results:
04/02/25 18:20 Blood Culture - Final
Blood/Venous No Growth - Final Report
04/02/25 17:55 Blood Culture - Final
Blood/Venous No Growth - Final Report
04/02/25 18:24 Urine Culture - Final
Urine NO GROWTH
04/02/25 18:24 Influenza Types A & B (CHONG) - Final
Nasal Swab Negative for Influenza A & B, NAAT
Negative results must be combined with clinical observations
and patient history.
Nucleic Acid Amplification test (NAAT)performed on the
[employer] WiFi platform.
[2025-04-08] MEDS: LOVENOX 40 MG SC (17:13)
[2025-04-08 20:18] VITALS: BP 163/95
[2025-04-08] MEDS: LAMICTAL 50 MG PO (21:29)
[2025-04-08] MEDS: ARICEPT 10 MG PO (21:29)
[2025-04-08] MEDS: TRILEPTAL 600 MG PO (21:29)
[2025-04-08] MEDS: LIPITOR 20 MG PO (21:29)
[2025-04-08] MEDS: MELATONIN 3 MG PO (21:30)
[2025-04-08 23:24] VITALS: BP 116/54
[2025-04-09 03:44] VITALS: BP 138/77
[2025-04-09 05:45] VITALS: BMI 21.5
[2025-04-09 07:35] VITALS: BP 166/98
[2025-04-09] MEDS: ZESTRIL 10 MG PO (07:45)
[2025-04-09] MEDS: NAMENDA 10 MG PO (07:45)
[2025-04-09] MEDS: TRILEPTAL 300 MG PO (07:45)
[2025-04-09] MEDS: ZYRTEC 10 MG PO (07:45)
[2025-04-09] MEDS: LAMICTAL 25 MG PO (07:45)
[2025-04-09] MEDS: OMNICEF 300 MG PO (07:46)
[2025-04-09] MEDS: TRILEPTAL 150 MG PO (07:46)
[2025-04-09] MEDS: DESENEX/MITRAZOL/ZEASORB 1 APPLIC TOPICAL (07:47)
--- NOTE | 2025-04-09 08:52 | W.DCSUMMARY ---
Discharge Summary
Discharge Data
Date of Admission: 04/05/25
Date of Discharge: 04/10/25
Total time spent discharging patient (in min): 45
-
Pending Results: No
Hospital Course
Ms. Martin is a 74-year-old female with a medical history of multiple sclerosis (functional paraplegia), hypertension, trigeminal neuralgia, WPW, COPD, cerebral cavernoma (s/p resection), and dementia who presented from her long term due to
weakness and fevers. She reportedly was having difficulty with transfers which she is usually able to do at baseline. Her D-dimer was elevated even when corrected for age. CT angiography was negative for PE and a Doppler was negative for. She
reportedly had a recent GI illness with diarrhea however has not had any unusual bowel movements since admission. Her respiratory panel was negative for influenza and COVID. She developed low-grade fevers on 04/04 and 04/05. Chest imaging showed
evidence of pneumonia which is possibly due to aspiration. She was started on antibiotics. She was evaluated by speech-language pathology who recommended a modified diet of soft and bite-size solids and thin liquids with close supervision. Video
swallow on 04/06 showed no overt signs of aspiration. She completed a course of antibiotics on 04/09 and has had no further fevers. She was discharged to a alf facility for ongoing physical therapy.
General: No Apparent Distress, Comfortable and Conversant
HEENT: NormoCephalic, Moist mucous membranes, Atraumatic
Respiratory: Clear and Non Labored Respirations
Cardiac: Regular rhythm, heart rate around 80
GI: Soft, Non Tender, Non Distended and Normal Bowel Sounds
Musculoskeletal: Mild right lower extremity edema, no deformity
Skin: Warm and dry
: NO Lopez
Neuro: Awake, Alert, Nonfocal/grossly intact
Psych: Calm and cooperative
Discharge Plan
-
Patient Disposition: Alf/SNF
Discharge Diagnosis/Procedures: Acute weakness
Aspiration pneumonia
Dysphagia
Diet: Other diet
Additional Diets: Soft and bite-size solids with thin liquids, close supervision with meals
Activity Restrictions/Additional Instructions:
You were admitted for treatment of acute weakness. You had intermittent fevers during your hospitalization. Chest imaging showed evidence of pneumonia which may have been caused by aspiration. You were started on antibiotics. You were evaluated
by the speech and language pathologist who recommended a modified diet of soft and bite-size solids with thin liquids and close supervision with meals. Video swallow completed on 04/06 showed no overt signs of aspiration. Your fevers resolved.
You had no diarrhea while in the hospital. Your respiratory panel was negative for influenza or COVID. You were evaluated by PT/OT who recommended rehab at a alf facility after discharge.
Referrals:
UNKNOWN - PT NOT,INTERVIEWE [Family Provider]
Prescriptions:
New
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
See Rx Instructions .ROUTE .MEDSUPPLY Qty: 1 0RF
Rx Instructions:
As directed
cefdinir 300 mg Capsule
300 mg PO Q12 1 Days Qty: 2 0RF
Continued
lisinopril 10 MG tablet
10 mg PO DAILY
donepezil 10 mg Tablet
10 mg PO HS
therapeutic multivitamin Tablet
1 tab PO DAILY
oxcarbazepine 300 mg tablet
450 mg PO BID@0800,1700
oxcarbazepine 300 mg tablet
600 mg PO HS
lamotrigine 25 mg tablet
25 mg PO DAILY
lamotrigine 25 mg tablet
50 mg PO HS
magnesium hydroxide [Milk of Magnesia] 400 mg/5 mL Suspension
30 ml PO DAILYPRN PRN (Reason: NO BM IN 2 DAYS)
benzonatate 100 mg Capsule
100 mg PO Q8HPRN PRN (Reason: COUGH)
Artificial Tears(pvalch-povid) 0.5-0.6 % Drops
1 drp BOTH EYES QID
acetaminophen 325 MG tablet
650 mg PO Q6HPRN PRN (Reason: mild pain/[place]/temp> 100.F)
atorvastatin [Lipitor] 20 mg Tablet
20 mg PO HS
cetirizine [Zyrtec] 10 mg Tablet
10 mg PO DAILY
miconazole nitrate [Lotrimin AF Powder] 2 % Aerosol Powder
1 spray TOPICAL MEADE@2000
loperamide 2 mg Tablet
2 mg PO [id number] PRN (Reason: diarrhea)
melatonin 3 mg Tablet
3 mg PO HS
oxybutynin chloride 5 mg Tablet
5 mg PO HS
memantine 10 mg Tablet
10 mg PO BID
Advil Cold and Sinus 30-200 mg Capsule
1 cap PO TIDPRN PRN (Reason: congestion)
guaifenesin [Mucinex] 600 mg Tablet Extended Release 12hr
600 mg PO BIDPRN PRN (Reason: congestion)
docusate sodium 100 MG capsule
100 mg PO BIDPRN PRN (Reason: constipation)
Discharge Orders:
Discharge Patient (As Directed); Ordered 04/09/25
Ordered By: Jaquan Hurtado
Discharge Date and Time
Discharge Date/Time: 04/09/25 11:28
Print Language: PORTUGUESE
--- NOTE | 2025-04-09 10:06 | PTCARENOTE ---
report given to Cecy at [facility]
[2025-04-09 10:29] VITALS: BP 130/75
== END 2025-04-09 11:28 | DRG 304 ==
LOC: 4 WEST ACU 08:24
PROVIDERS: Registered Nurse; ADMITTING PHYSICIAN Hospitalist; ATTENDING PHYSICIAN Internal Medicine; EMERGENCY PHYSICIAN Emergency Medicine; OTHER PHYSICIAN Student in an Organized Health Care Education/Training Program
DX: I16.0 Hypertensive urgency (principal); J69.0 Pneumonitis due to inhalation of food and vomit; E87.1 Hypo-osmolality and hyponatremia; G82.20 Paraplegia, unspecified; R53.1 Weakness; F03.90 Unspecified dementia, unspecified severity, without behavioral disturbance, psychotic disturbance, mood disturbance, and anxiety; E78.00 Pure hypercholesterolemia, unspecified; G35.D Multiple sclerosis, unspecified; I10 Essential (primary) hypertension; R13.10 Dysphagia, unspecified; E87.6 Hypokalemia; G50.0 Trigeminal neuralgia; J44.9 Chronic obstructive pulmonary disease, unspecified; Z66 Do not resuscitate; Z60.2 Problems related to living alone; Z87.891 Personal history of nicotine dependence; Z11.52 Encounter for screening for COVID-19; Z79.899 Other long term (current) drug therapy
CPT/HCPCS: 71045; 71275; 74230; 80048; 80053; 81003; 81015; 83605; 84443; 85025; 85027; 85379; 87040; 87086; 87502; 87811; 92526; 92610; 92611; 93005; 93971; 96360; 96361; 97163; 97167; 97530; 97535; 99285; Q9967

== ENCOUNTER → 2025-04-14 09:02 | Outpatient (REF) | payer OTHER, MEDICARE, SELFPAY ==
[2025-04-14 11:52] LABS: Hematocrit 39.6 % (37.0-47.0); Hemoglobin 13.2 g/dL (12.0-16.0); Mean Corp Hgb Conc. 33.3 g/dL (33.0-37.0); Mean Corpuscular Volume 90.2 fL (81.0-99.0); Platelet Count 421 10^3/uL (130-400); Red Cell Dist. Width 13.5 % (11.5-14.5)
[2025-04-14 11:54] LABS: ALT (SGPT) 59 U/L (0-35); AST (SGOT) 26 U/L (14-36); Albumin 3.3 g/dl (3.5-5.0); Alkaline Phosphatase 96 U/L (38-126); Blood Urea Nitrogen 24 mg/dl (7-17); Calcium 8.7 mg/dl (8.4-10.2); Carbon Dioxide 27 mmol/L (22-30); Chloride 106 mmol/L (98-107); Glucose 90 mg/dl (70-99); Magnesium 2.4 mg/dl (1.6-2.3); Potassium 3.8 mmol/L (3.5-5.1); Sodium 139 mmol/L (135-145); Total Protein 5.3 g/dl (6.3-8.2); eGFR > 60.00
== END ==
LOC: OLABWHC 09:02
PROVIDERS: ATTENDING PHYSICIAN Family Medicine
DX: I10 Essential (primary) hypertension (principal); J69.0 Pneumonitis due to inhalation of food and vomit
CPT/HCPCS: 36415; 80053; 83735; 85027